=== PATIENT | male | born 1945 | race Caucasian/White ===

== ENCOUNTER 2016-08-19 22:33 | Inpatient (IN) | payer OTHER, MEDICARE ==
[~2016-08-19] VITALS: Ht 172.7 cm; Wt 97.0 kg
[~2016-08-19 22:33] MED LIST: ASPI325T PO; CAPT12.52 PO; CARV3.125 PO; LASI20TA PO; NITR12SP SL; POTA-243 PO; PRIL10CA PO; WARF7.5 PO; ZOCO80TA PO
[2016-08-19 22:56] VITALS: BP 193/94; PULSE 65; RESP 20; TEMP 97.9; O2SAT 97
[2016-08-19] MEDS ORDERED: SODIUM CHLORIDE 0.9% FLUSH 5 ML FLUSH IVF PRN (23:00)
--- NOTE | 2016-08-19 23:01 | PD ---
HPI Chief Complaint: Chest Pain Time Seen by Provider: 22:36 Travel History International Travel<30 days: No Contact w/Intl Traveler<30days: No Traveled to known affect area: No History of Present Illness HPI This 71-year-old male is complaining of chest pain. He says he was at home. He was walking his dogs around 7 when he had an onset of left lateral chest pain. He felt short of breath with the pain. He went home and the pain was fairly persistent. He rated it as a 6 or 7/10. He has a home oxygen tank and he uses some oxygen with some relief. He has a history of coronary artery disease. He has had bypass surgery and 5 stents. He says the last stent was about 20 years ago. In 2009 had a large pulmonary embolus week after surgery for prostate cancer. He is not on blood thinners now. He does not smoke. He does take aspirin daily and took one today PFSH Past Medical History Arthritis: Yes Asthma: No Cancer: Yes (PROSTATE) Cardiac Catheterization: Yes (ANGIOPLASTY X 5) Cardiovascular Problems: Yes High Cholesterol: Yes Chest Pain: Yes (MT X 3) Congestive Heart Failure: No COPD: No Cerebrovascular Accident: No Coronary Artery Disease: Yes Diabetes: Yes (PREDIABETIC) GERD: Yes Genitourinary: Yes (INCREASING PSA-PROSTATECTOMY 10/12/09) Headaches: No Hepatitis: No Hypertension: Yes Kidney Stones: No Musculoskeletal: Yes Neurologic: No Respiratory: No Migraines: No Myocardial Infarction: Yes (MT X 3) Renal Failure: No Seizures: No Sleep Apnea: No Ulcer: Yes (DUODENAL ULCER) Past Surgical History Abdominal Surgery: Yes (PROSTATECTOMY) Appendectomy: Yes Cardiac Surgery: Yes (CABG X 1 20 YRS AGO) Cholecystectomy: No Coronary Artery Bypass Graft: Yes Genitourinary Surgery: Yes (PROSTATECTOMY) Prostatectomy: Yes (10/22/2009 IN [facility]) Thoracic Surgery: Yes (CABG X 1) Tonsillectomy: Yes Social History Alcohol Use: Yes (1-2/DAY) Tobacco Use: No Substance Use: No Allergies-Medications (Allergen,Severity, Reaction): Coded Allergies: No Known Allergies (Verified , 10/28/09) Reported Meds & Prescriptions Reported Meds & Active Scripts Active Reported Coumadin (Warfarin Sodium) 7.5 Mg Tab 7.5 Mg PO DAILY Zocor (Simvastatin) 80 Mg Tab 80 Mg PO HS Nitrolingual Pumpspray (Nitroglycerin) 12 Gm [place] 3 Spr SL THREE SPRAYS PRN Prilosec (Omeprazole) 10 Mg Cap 20 Mg PO DAILYAC UNKNOWN DOSE K-Dur (Potassium Chloride) 10 Meq Tabcr 20 Mg PO BID UNKNOWN DOSE Lasix (Furosemide) 20 Mg Tab 80 Mg PO BID UNKNOWN DOSE Capoten (Captopril) 12.5 Mg Tab 25 Mg PO BID Coreg (Carvedilol) 3.125 Mg Tab 12.5 Mg PO BID UNKNOWN DOSE Aspirin 325 Mg Tab 325 Mg PO DAILY Review of Systems General / Constitutional: No: Fever Eyes: No: Diploplia HENT: No: Headaches, Vertigo Cardiovascular: Positive: Chest Pain or Discomfort, No: Palpitations Respiratory: Positive: Shortness of Breath Gastrointestinal: No: Vomiting, Diarrhea Genitourinary: No: Urgency Skin: Positive Rash Neurologic: No: Weakness, Dizziness Psychiatric: No: Anxiety Endocrine: No: Heat Intolerance Hematologic/Lymphatic: No: Easy Bruising Physical Exam Narrative GENERAL: Well-developed male SKIN: Warm and dry. There are a few erythematous spots on the left lower leg. They're not confluent or warm. HEAD: Atraumatic. Normocephalic. EYES: Pupils equal and round. No scleral icterus. No injection or drainage. ENT: No nasal bleeding or discharge. Mucous membranes pink and moist. NECK: Trachea midline. No JVD. CARDIOVASCULAR: Regular rate and rhythm. No murmur appreciated. No chest wall tenderness RESPIRATORY: No accessory muscle use. Clear to auscultation. Breath sounds equal bilaterally. GASTROINTESTINAL: Abdomen soft, non-tender, nondistended. Hepatic and splenic margins not palpable. MUSCULOSKELETAL: No obvious deformities. No clubbing. No cyanosis. No edema. NEUROLOGICAL: Awake and alert. No obvious cranial nerve deficits. Motor grossly within normal limits. Normal speech. PSYCHIATRIC: Appropriate mood and affect; insight and judgment normal. Data Data Last Documented VS Vital Signs Date Time Temp Pulse Resp B/P Pulse Ox O2 Delivery O2 Flow Rate FiO2 08/19/16 23:37 60 24 97 Nasal Cannula 2 08/19/16 23:37 147/70 08/19/16 22:56 97.9 Orders Electrocardiogram (08/19/16 22:54) Basic Metabolic Panel (Bmp) (08/19/16 22:54) B-Type Natriuretic Peptide (08/19/16 22:54) Complete Blood Count With Diff (08/19/16 22:54) Magnesium (Mg) (08/19/16 22:54) Prothrombin Time / Inr (Pt) (08/19/16 22:54) Act Partial Throm Time (Ptt) (08/19/16 22:54) Troponin I (08/19/16 22:54) Chest, Single Ap (08/19/16 22:54) Ecg Monitoring (08/19/16 22:54) Bilateral Bp Monitoring (08/19/16 22:54) Iv Access Insert/Monitor (08/19/16 22:54) Oximetry (08/19/16 22:54) Oxygen Administration (08/19/16 22:54) Sodium Chloride 0.9% Flush (Ns Flush) (08/19/16 23:00) Ct Pulmonary Angiogram (08/19/16 23:34) Labs Laboratory Tests Test 08/19/16 23:00 White Blood Count 8.4 TH/MM3 Red Blood Count 4.15 MIL/MM3 Hemoglobin 13.9 GM/DL Hematocrit 40.6 % Mean Corpuscular Volume 97.7 FL Mean Corpuscular Hemoglobin 33.4 PG Mean Corpuscular Hemoglobin 34.2 % Concent Red Cell Distribution Width 13.4 % Platelet Count 223 TH/MM3 Mean Platelet Volume 8.0 FL Neutrophils (%) (Auto) 60.0 % Lymphocytes (%) (Auto) 28.9 % Monocytes (%) (Auto) 7.4 % Eosinophils (%) (Auto) 3.0 % Basophils (%) (Auto) 0.7 % Neutrophils # (Auto) 5.0 TH/MM3 Lymphocytes # (Auto) 2.4 TH/MM3 Monocytes # (Auto) 0.6 TH/MM3 Eosinophils # (Auto) 0.3 TH/MM3 Basophils # (Auto) 0.1 TH/MM3 CBC Comment DIFF FINAL Differential Comment Prothrombin Time 10.7 SEC Prothromb Time International 1.0 RATIO Ratio Activated Partial 23.4 SEC Thromboplast Time Sodium Level 143 MEQ/L Potassium Level 4.1 MEQ/L Chloride Level 103 MEQ/L Carbon Dioxide Level 33.5 MEQ/L Anion Gap 7 MEQ/L Blood Urea Nitrogen 18 MG/DL Creatinine 1.00 MG/DL Estimat Glomerular Filtration 73 ML/MIN Rate Random Glucose 152 MG/DL Calcium Level 8.8 MG/DL Magnesium Level 2.2 MG/DL Troponin I 0.20 NG/ML B-Type Natriuretic Peptide 57 PG/ML MDM Medical Decision Making Medical Screen Exam Complete: Yes Emergency Medical Condition: Yes Medical Record Reviewed: Yes Differential Diagnosis Differential includes coronary artery disease, pulmonary embolus, atypical chest pain Narrative Course EKG shows normal sinus rhythm. Chest x-rays negative. His oxygen saturation on arrival was about 92%. Troponin has come back elevated at 0.2. I have spoken to Dr. Stewart. He recommends heparinization and repeat troponin 2 hours. If the troponin is going up the patient may be transferred to [place] for possible catheterization, if stable he will be evaluated here Diagnosis Primary Impression: Chest pain Qualified Code: R07.9 - Chest pain, unspecified type Additional Impression: Elevated troponin Sajan Hudson MD Aug 19, 2016 23:01
[2016-08-19 23:11] VITALS: BP 145/72; PULSE 62; RESP 20; O2SAT 97
[2016-08-19 23:13] LABS: BASOPHIL # 0.1 TH/MM3 (0-0.2); BASOPHIL % 0.7 % (0.0-2.0); EOSINOPHIL # 0.3 TH/MM3 (0-0.4); HEMATOCRIT 40.6 % (39.0-51.0); HEMO FLAGS DIFF FINAL; LYMPH % 28.9 % (9.0-44.0); LYMPHOCYTE # 2.4 TH/MM3 (1.0-4.8); MEAN CELL VOLUME 97.7 FL (80.0-100.0); MEAN CORPUSCULAR HEMOGLOBIN 33.4 PG (27.0-34.0); MEAN CORPUSCULAR HGB CONC 34.2 % (32.0-36.0); MONO % 7.4 % (0.0-8.0); PLATELET COUNT 223 TH/MM3 (150-450); RED BLOOD COUNT 4.15 MIL/MM3 (4.50-5.90); RED CELL DISTRIBUTION WIDTH 13.4 % (11.6-17.2); WHITE BLOOD COUNT 8.4 TH/MM3 (4.0-11.0)
[2016-08-19 23:15] VITALS: BP_SYST 132; BP_SYST 145; BP_DIAS 68; BP_DIAS 72; PULSE 62; RESP 20; O2SAT 97
[2016-08-19 23:25] LABS: POTASSIUM 4.1 MEQ/L (3.5-5.1)
[2016-08-19 23:28] LABS: BICARBONATE 33.5 MEQ/L (21.0-32.0); MAGNESIUM 2.2 MG/DL (1.5-2.5)
[2016-08-19 23:31] LABS: APTT (PATIENT) 23.4 SEC (24.3-30.1); PROTHROMBIN TIME - PATIENT 10.7 SEC (9.8-11.6)
[2016-08-19 23:37] VITALS: BP 147/70; PULSE 72; RESP 20; O2SAT 97
--- NOTE | 2016-08-19 23:38 | RADHPO ---
EXAM DATE/TIME: 08/19/2016 23:22 [facility] COMPARISON: No previous studies available for comparison. INDICATIONS : Chest pain MEDICAL HISTORY : Myocardial infarction. Diabetes mellitus type II. SURGICAL HISTORY : CABG. Prostatectomy. Angioplasty ENCOUNTER: Initial ACUITY: 1 day PAIN SCORE: 6/10 LOCATION: Bilateral chest FINDINGS: Lungs are focally clear. No pleural effusion suspected. Cardiomediastinal contours are satisfactory. There is been previous sternotomy. CONCLUSION: Acute disease. Juan F Mcdaniel MD on August 19, 2016 at 23:36 Board Certified Radiologist. This report was verified electronically.
[2016-08-20] VITALS (19 sets, daily range): BP systolic 102–150; BP diastolic 52–85; PULSE 55–66; RESP 16–20; TEMP 98–98.5; O2SAT 95–98
[2016-08-20] MEDS ORDERED: NITR400A5 SL (00:14)
[2016-08-20] MEDS ORDERED: ISOS20TA PO (00:14)
[2016-08-20] MEDS ORDERED: ROSU40 PO (00:14)
[2016-08-20] MEDS ORDERED: GABA300C5 PO (00:14)
[2016-08-20] MEDS ORDERED: ASPI325T PO (00:14)
[2016-08-20] MEDS ORDERED: FOLI800T PO (00:14)
[2016-08-20] MEDS ORDERED: POTA1TAB4 PO (00:14)
[2016-08-20] MEDS ORDERED: PRIL20CA9 PO (00:14)
[2016-08-20] MEDS ORDERED: CARV3.125 PO (00:14)
[2016-08-20] MEDS ORDERED: FURO80TA PO (00:14)
[2016-08-20] MEDS ORDERED: CAPT12.52 PO (00:14)
[2016-08-20] MEDS ORDERED: IOHEXOL 350 MG/ML 10 ML VIAL (for RAD DIAG) IV ONE (00:25)
--- NOTE | 2016-08-20 00:33 | RADHPO ---
EXAM DATE/TIME: 08/20/2016 00:01 [facility] COMPARISON: No previous studies available for comparison. INDICATIONS : Left sided chest pain with shortness of breath. IV CONTRAST: 75 cc Omnipaque 350 (iohexol) IV RADIATION DOSE: 21.91 CTDIvol (mGy) MEDICAL HISTORY : Hypertension. Myocardial infarction. Coronary artery disease. SURGICAL HISTORY : CABG Angioplasty. ENCOUNTER: Initial ACUITY: 1 day PAIN SCALE: 7/10 LOCATION: Left chest TECHNIQUE: Volumetric scanning of the chest was performed using a pulmonary embolism protocol MIP images were re constructed. Using automated exposure control and adjustment of the mA and/or kV according to patien t size, radiation dose was kept as low as reasonably achievable to obtain optimal diagnostic quality images. FINDINGS: PULMONARY ARTERIES: No filling defects are seen in the pulmonary arteries through the segmental level. LUNGS: 6 mm nodule in the posterior right costophrenic sulcus. Minimal basilar atelectasis or lung scarring. PLEURAE: There is no pleural thickening or pleural effusion. MEDIASTINUM: There is good visualization of the great vessels of the middle mediastinum. No evidence of mediastin al or hilar adenopathy/mass. MUSCULOSKELETAL: Within normal limits for patient age. MISCELLANEOUS: The visualized upper abdominal organs demonstrate no acute abnormality. CONCLUSION: No evidence of pulmonary embolism. 6 mm right lung nodule will need to be followed Juan F Mcdaniel MD on August 20, 2016 at 0:27 Board Certified Radiologist. This report was verified electronically.
--- NOTE | 2016-08-20 00:39 | PD ---
Physical Exam Date Seen by Provider: Aug 20, 2016 Time Seen by Provider: 00:37 Narrative Accepted in transfer of care from Dr. Walsh Data Data Last Documented VS Vital Signs Date Time Temp Pulse Resp B/P Pulse Ox O2 Delivery O2 Flow Rate FiO2 08/19/16 23:37 60 24 97 Nasal Cannula 2 08/19/16 23:37 147/70 08/19/16 22:56 97.9 Orders Electrocardiogram (08/19/16 22:54) Basic Metabolic Panel (Bmp) (08/19/16 22:54) B-Type Natriuretic Peptide (08/19/16 22:54) Complete Blood Count With Diff (08/19/16 22:54) Magnesium (Mg) (08/19/16 22:54) Prothrombin Time / Inr (Pt) (08/19/16 22:54) Act Partial Throm Time (Ptt) (08/19/16 22:54) Troponin I (08/19/16 22:54) Chest, Single Ap (08/19/16 22:54) Ecg Monitoring (08/19/16 22:54) Bilateral Bp Monitoring (08/19/16 22:54) Iv Access Insert/Monitor (08/19/16 22:54) Oximetry (08/19/16 22:54) Oxygen Administration (08/19/16 22:54) Sodium Chloride 0.9% Flush (Ns Flush) (08/19/16 23:00) Ct Pulmonary Angiogram (08/19/16 23:34) Iohexol 350 Inj (Omnipaque 350 Inj) (08/20/16 00:25) Troponin I (08/20/16 02:00) Admit To Inpatient (08/20/16 ) Vital Signs (Adult) Q4H (08/20/16 00:42) Activity Oob With Assistance (08/20/16 00:42) ^ Shrink Pit Operator / Telemetry .CONTINUOUS (08/20/16 00:42) Intake + Output ANJEL.QSHIFT (08/20/16 00:42) Diet Heart Healthy (08/20/16 Breakfast) Sodium Chlor 0.9% 1000 Ml Inj (Ns 1000 M (08/20/16 00:42) Sodium Chloride 0.9% Flush (Ns Flush) (08/20/16 00:45) Sodium Chloride 0.9% Flush (Ns Flush) (08/20/16 09:00) Ondansetron Inj (Zofran Inj) (08/20/16 00:45) Bisacodyl Supp (Dulcolax Supp) (08/20/16 00:45) Heparin Infusion ANJEL.Q1H (08/20/16 00:43) Comprehensive Metabolic Panel (08/21/16 06:00) Complete Blood Count With Diff (08/21/16 06:00) Heparin Inj (Heparin Inj) (08/20/16 00:45) Troponin I (08/20/16 09:00) Heparin-D5w Inj (Heparin-D5w Inj) (08/20/16 00:45) Troponin I (08/20/16 15:00) Cbc No Diff, Includes Plts (08/23/16 06:00) Acetaminophen (Tylenol) (08/20/16 00:45) Act Partial Throm Time (Ptt) (08/20/16 07:43) Acetamin-Hydrocod 325-5 Mg (Jones 5-325 (08/20/16 00:45) Occult Blood (Hemoccult) Stool (08/20/16 00:43) Morphine Inj (Morphine Inj) (08/20/16 00:45) Inpatient Certification (08/20/16 ) Aspirin (Aspirin) (08/20/16 09:00) Carvedilol (Coreg) (08/20/16 09:00) Gabapentin (Neurontin) (08/20/16 09:00) Atorvastatin (Lipitor) (08/20/16 09:00) Labs Laboratory Tests Test 08/19/16 08/20/16 23:00 02:00 White Blood Count 8.4 TH/MM3 Red Blood Count 4.15 MIL/MM3 Hemoglobin 13.9 GM/DL Hematocrit 40.6 % Mean Corpuscular Volume 97.7 FL Mean Corpuscular Hemoglobin 33.4 PG Mean Corpuscular Hemoglobin 34.2 % Concent Red Cell Distribution Width 13.4 % Platelet Count 223 TH/MM3 Mean Platelet Volume 8.0 FL Neutrophils (%) (Auto) 60.0 % Lymphocytes (%) (Auto) 28.9 % Monocytes (%) (Auto) 7.4 % Eosinophils (%) (Auto) 3.0 % Basophils (%) (Auto) 0.7 % Neutrophils # (Auto) 5.0 TH/MM3 Lymphocytes # (Auto) 2.4 TH/MM3 Monocytes # (Auto) 0.6 TH/MM3 Eosinophils # (Auto) 0.3 TH/MM3 Basophils # (Auto) 0.1 TH/MM3 CBC Comment DIFF FINAL Differential Comment Prothrombin Time 10.7 SEC Prothromb Time International 1.0 RATIO Ratio Activated Partial 23.4 SEC Thromboplast Time Sodium Level 143 MEQ/L Potassium Level 4.1 MEQ/L Chloride Level 103 MEQ/L Carbon Dioxide Level 33.5 MEQ/L Anion Gap 7 MEQ/L Blood Urea Nitrogen 18 MG/DL Creatinine 1.00 MG/DL Estimat Glomerular Filtration 73 ML/MIN Rate Random Glucose 152 MG/DL Calcium Level 8.8 MG/DL Magnesium Level 2.2 MG/DL Troponin I 0.20 NG/ML 0.30 NG/ML B-Type Natriuretic Peptide 57 PG/ML [facility] Medical Record Reviewed: Yes Supervised Visit with KAYLEE: No Interpretation(s) CTA pulmonary: CONCLUSION: No evidence of pulmonary embolism. 6 mm right lung nodule will need to be followed Juan F Mcdaniel MD on August 20, 2016 at 0:27 Board Certified Radiologist. This report was verified electronically. Last Impressions Chest X-Ray 08/19/16 [id number] Signed Impressions: Service Date/Time: Friday, August 19, 2016 23:22 - CONCLUSION: Acute disease. Juan F Mcdaniel MD troponin I: (#2) 0.3, elevated Differential Diagnosis please refer to Dr. Walsh's dictation Narrative Course Accepted in transfer of care from Dr. Walsh At 12:[address] pulmonary angiogram is negative for PE; patient is to have repeat troponin at 3 hours from initial troponin at time of arrival; patient case had been discussed with Dr. Valdivia personal injury specialist for cardiology by managing physician Dr. Manley who recommended patient to be placed on Lovenox and have a 3 hour troponin obtained from initial troponin which was abnormal at 0.2. Patient's troponin is increasing patient will need to be transferred to [facility] if troponin is remaining the same or decreasing plan will be to admit patient to [facility] Physician Communication Physician Communication discussed with Dr Barone will admit with heparinization but wants to obtain 2nd troponin result before admitting to the [facility] service Diagnosis Primary Impression: Chest pain Qualified Code: R07.9 - Chest pain, unspecified type Additional Impression: Elevated troponin Blanca Gutierrez MD Aug 20, 2016 00:39
[2016-08-20] MEDS ORDERED: SODIUM CHLOR 0.9% 1000 ML INJ 1,000 ML IV SCH (00:42)
[2016-08-20] MEDS ORDERED: HEPARIN-D5W INJ 250 ML IV SCH (00:45)
[2016-08-20] MEDS ORDERED: HEPARIN SODIUM - IV 10,000 UNITS/10 ML VIAL IV ONE (00:45)
[2016-08-20] MEDS ORDERED: ACETAMINOPHEN/HYDROcodone 325 MG/5 MG TAB PO PRN (00:45)
[2016-08-20] MEDS ORDERED: MORPHINE SULFATE 4 MG/ML INJ IV PRN (00:45)
[2016-08-20] MEDS ORDERED: ONDANSETRON HCL 4 MG/2 ML VIAL IVP PRN (00:45)
[2016-08-20] MEDS ORDERED: BISACODYL 10 MG SUPP PR PRN (00:45)
[2016-08-20] MEDS ORDERED: SODIUM CHLORIDE 0.9% FLUSH 5 ML FLUSH FLUSH PRN (00:45)
[2016-08-20] MEDS ORDERED: ACETAMINOPHEN 325 MG TAB PO PRN (00:45)
[2016-08-20] MEDS ORDERED: SODIUM CHLORIDE 0.9% FLUSH 5 ML FLUSH IVF PRN (03:00)
[2016-08-20] MEDS: ATORVASTATIN 80 MG TAB PO SCH (08:47)
[2016-08-20] MEDS: SODIUM CHLORIDE 0.9% FLUSH 5 ML FLUSH IVF SCH ×2 (08:47→21:00)
[2016-08-20] MEDS: GABAPENTIN 300 MG CAP PO SCH ×3 (08:47→18:02)
[2016-08-20] MEDS ORDERED: ASPIRIN EC 81 MG TABEC PO SCH (09:00)
[2016-08-20] MEDS ORDERED: CARVEDILOL 3.125 MG TAB PO SCH (09:00)
[2016-08-20] MEDS ORDERED: ASPIRIN 325 MG TAB PO SCH (09:00)
[2016-08-20] MEDS ORDERED: SODIUM CHLORIDE 0.9% FLUSH 5 ML FLUSH FLUSH SCH (09:00)
[2016-08-20 11:12] LABS: APTT (PATIENT) 25.9 SEC (24.3-30.1)
--- NOTE | 2016-08-20 12:54 | HHI.HP ---
[facility] Service [facility] Hospitalists Primary Care Physician Javed Cummings MD Admission Diagnosis chest pain; nstemi Diagnoses: Chief Complaint: chest pain Travel History International Travel<30 Days: No Contact w/Intl Traveler <30 Da: [place] Country Traveled to: [place] Traveled to Known Affected Are: No History of Present Illness 71-year-old male with PMH of CAD with CABG, HTN, DM2, duodenal ulcer, prostate CA came to the ED with complaint of chest pain associated with sob. He was walking his dogs around 7 when he had an onset of left lateral chest pain 6/10 in intensity radiating to his left side. He felt short of breath with the pain. He went home and the pain was fairly persistent. He rated it as a 6 or 7 /10. He has a home oxygen tank and he uses some oxygen with some relief. He has a history of coronary artery disease. He has had bypass surgery and 5 stents. He says the last stent was about 20 years ago. In 2009 had a large pulmonary embolus week after surgery for prostate cancer. He is not on blood thinners now other than ASA. He does not smoke. He does take aspirin daily and took one today, He took NGL spray prior to admission 3 puffs. Says he feels some pressure in his chest now, and pain is 2/10. No associated diaphoresis, nausea, palpitations. No other symptoms. He initially presented to [facility], however trops trending up , Dr Terry wayne, recommends transferring the patient to [facility] for cath Was seen by Dr Meneses, plan for cardiac cath today in the afternoon. Review of Systems Other Negative except ROS in HPI Past Family Social History Past Medical History CAD with CABG, HTN, DM2, duodenal ulcer, prostate CA Past Surgical History CABG , 5 angioplasties Prostatectomy 2009 Reported Medications Last Impressions CT Angiography 08/19/16 [id number] Signed Impressions: Service Date/Time: Saturday, August 20, 2016 00:01 - CONCLUSION: No evidence of pulmonary embolism. 6 mm right lung nodule will need to be followed Juan F Mcdaniel MD Chest X-Ray 08/19/16 [id number] Signed Impressions: Service Date/Time: Friday, August 19, 2016 23:22 - CONCLUSION: Acute disease. Juan F Mcdaniel MD Allergies: Coded Allergies: No Known Allergies (Verified , 10/28/09) Family History Father had SC at the age of 42 Grandfather and uncle with cardiac problems Social History Quit smoking 30 years ago 3 drinks twice a week (bourbon, whiskey) when at golf Physical Exam Vital Signs Vital Signs Date Time Temp Pulse Resp B/P Pulse Ox O2 Delivery O2 Flow Rate FiO2 08/20/16 12:01 58 08/20/16 11:30 98.0 59 16 123/66 97 08/20/16 11:00 57 08/20/16 10:34 95 Nasal Cannula 2.00 08/20/16 10:00 58 08/20/16 09:00 58 08/20/16 08:15 98.0 60 16 136/73 98 08/20/16 08:15 98.0 60 16 136/73 98 08/20/16 08:00 61 08/20/16 07:00 58 08/20/16 06:10 98.0 58 20 136/79 98 08/20/16 05:00 66 18 126/62 97 Room Air 08/20/16 02:44 97 Nasal Cannula 2.00 08/20/16 02:44 66 20 124/60 97 08/20/16 01:44 58 20 102/52 97 08/20/16 00:44 56 20 118/74 97 08/19/16 23:37 60 24 97 Nasal Cannula 2 08/19/16 23:37 72 20 147/70 97 Nasal Cannula 2 08/19/16 23:15 62 20 145/72 97 132/68 08/19/16 23:11 62 20 145/72 97 Nasal Cannula 2 08/19/16 23:10 98 Nasal Cannula 2 08/19/16 22:56 97.9 65 20 193/94 97 Physical Exam GENERAL: This is a pleasant 71 yo male, obese, well-nourished, well-developed patient, in no apparent distress. SKIN: No ecchymoses or lesions. Cool and dry. HEAD: Atraumatic. Normocephalic. No temporal or scalp tenderness. EYES: Pupils equal round and reactive. Extraocular motions intact. No scleral icterus. No injection or drainage. ENT: Nose without bleeding, purulent drainage or septal hematoma. Throat without erythema, tonsillar hypertrophy or exudate. Uvula midline. Airway patent. NECK: Trachea midline. No JVD or lymphadenopathy. Supple, nontender, no meningeal signs. CARDIOVASCULAR: Regular rate and rhythm without murmurs, gallops, or rubs. RESPIRATORY: Clear to auscultation. Breath sounds equal bilaterally. No wheezes , rales, or rhonchi. GASTROINTESTINAL: Abdomen soft, obese, non-tender, nondistended. No hepato- splenomegaly, or palpable masses. No guarding. MUSCULOSKELETAL: Extremities without clubbing, cyanosis, or edema. No joint tenderness, effusion, or edema noted. No calf tenderness. Negative Homans sign bilaterally. NEUROLOGICAL: Awake and alert. Cranial nerves II through XII intact. Motor and sensory grossly within normal limits. Five out of 5 muscle strength in all muscle groups. Normal speech. Laboratory Laboratory Tests Test 08/19/16 08/20/16 08/20/16 08/20/16 23:00 02:00 10:40 11:05 White Blood Count 8.4 Red Blood Count 4.15 Hemoglobin 13.9 Hematocrit 40.6 Mean Corpuscular Volume 97.7 Mean Corpuscular Hemoglobin 33.4 Mean Corpuscular Hemoglobin 34.2 Concent Red Cell Distribution Width 13.4 Platelet Count 223 Mean Platelet Volume 8.0 Neutrophils (%) (Auto) 60.0 Lymphocytes (%) (Auto) 28.9 Monocytes (%) (Auto) 7.4 Eosinophils (%) (Auto) 3.0 Basophils (%) (Auto) 0.7 Neutrophils # (Auto) 5.0 Lymphocytes # (Auto) 2.4 Monocytes # (Auto) 0.6 Eosinophils # (Auto) 0.3 Basophils # (Auto) 0.1 CBC Comment DIFF FINAL Differential Comment Prothrombin Time 10.7 Prothromb Time International 1.0 Ratio Activated Partial 23.4 25.9 26.0 Thromboplast Time Sodium Level 143 Potassium Level 4.1 Chloride Level 103 Carbon Dioxide Level 33.5 Anion Gap 7 Blood Urea Nitrogen 18 Creatinine 1.00 Estimat Glomerular Filtration 73 Rate Random Glucose 152 Calcium Level 8.8 Magnesium Level 2.2 Troponin I 0.20 0.30 0.45 B-Type Natriuretic Peptide 57 Result Diagram: 08/19/160 08/19/[address] Angiography 08/19/16 [id number] Signed Impressions: Service Date/Time: Saturday, August 20, 2016 00:01 - CONCLUSION: No evidence of pulmonary embolism. 6 mm right lung nodule will need to be followed Juan F Mcdaniel MD Chest X-Ray 08/19/16 [id number] Signed Impressions: Service Date/Time: Friday, August 19, 2016 23:22 - CONCLUSION: Acute disease. Juan F Mcdaniel MD Assessment and Plan Assessment and Plan 71-year-old male with PMH of CAD with CABG, HTN, DM2, duodenal ulcer, prostate CA came to the ED with complaint of chest pain with exertion associated with sob NSTEMI H/o CAD with 5 angioplasties and CABG. Restart home meds. Trops elevated 0.2->0.3 trending up. EKG shows normal sinus rhythm. Chest x-rays negative. His oxygen saturation on arrival was 92%. CTA reviewed No evidence of pulmonary embolism. 6 mm right lung nodule will need to be followed as OP. Patient aware, repeat CT as OP. Started heparin drip Nitro for pain Monitor on telemetry HTN, DM2, duodenal ulcer, prostate CA. Stable. Hold home meds for DM, resume at DC. Start insulin SS , accuchecks, monitor BS. Monitor VS and restart BP meds. DVT ppx SCD/TEDs, is on heparin drip Code Status full Discussed Condition With Patient, nurse Physician Certification 2 Midnight Certification Type: Admission for Inpatient Services Order for Inpatient Services The services are ordered in accordance with Medicare regulations or non- Medicare payer requirements, as applicable. In the case of services not specified as inpatient-only, they are appropriately provided as inpatient services in accordance with the 2-midnight benchmark. Estimated LOS (days): 3 days is the estimated time the patient will need to remain in the hospital, assuming treatment plan goals are met and no additional complications. Post-Hospital Plan: Home Shannon Aguilar MD Aug 20, 2016 12:53
[2016-08-20] MEDS ORDERED: IOHEXOL 350 MG/ML 50 ML BTL (for Cath Lab) OTHER ONE (14:25)
[2016-08-20] MEDS ORDERED: IOHEXOL 350 MG/ML 100 ML BTL (for Cath Lab) OTHER ONE (14:25)
[2016-08-20] MEDS ORDERED: MORPHINE SULFATE 4 MG/ML INJ IV PUSH PRN (15:00)
[2016-08-20] MEDS ORDERED: PRASUGREL 10 MG TAB ONE (16:27)
[2016-08-20] MEDS ORDERED: NITROGLYCERIN-DEXTROSE INJ 250 ML ONE (16:27)
[2016-08-20] MEDS ORDERED: NITROGLYCERIN 400 MCG/SPRAY 4.9 GM BOTTLE SL ONE (16:28)
[2016-08-20] MEDS ORDERED: MORPHINE SULFATE 8 MG/ML INJ ONE (16:34)
[2016-08-20] MEDS ORDERED: MIDAZOLAM HCL 2 MG/2 ML VIAL ONE (16:35)
[2016-08-20] MEDS ORDERED: HEPARIN SODIUM - IV 10,000 UNITS/10 ML VIAL ONE ×2 (16:36→19:55)
[2016-08-20] MEDS ORDERED: ceFAZolin INJ 1,000 MG VIAL ONE (16:51)
[2016-08-20] MEDS ORDERED: TICAGRELOR 90 MG TAB PO ONE (16:51)
[2016-08-20] MEDS: LISINOPRIL 20 MG TAB PO SCH (19:00)
--- NOTE | 2016-08-20 19:28 | EKG ---
Date Performed: 08/19/2016 Time Performed: 22:34:26 PTAGE: 71 years EKG: Sinus rhythm Normal ECG PREVIOUS TRACING : 10/30/2009 10.52 DOCTOR: Nestor Huynh Interpretating Date/Time 08/20/2016 19:23:57
[2016-08-20] MEDS ORDERED: HEPARIN-NS/PF INJ 500 ML ONE ×3 (19:48→22:07)
[2016-08-20] MEDS ORDERED: MIDAZOLAM HCL 5 MG/5 ML VIAL ONE (19:49)
[2016-08-20] MEDS ORDERED: VERAPAMIL HCL 5 MG/2 ML VIAL ONE (19:55)
[2016-08-20] MEDS ORDERED: FLUMAZENIL 0.5 MG/5 ML VIAL ONE (20:02)
[2016-08-20] MEDS ORDERED: NALOXONE HCL 0.4 MG/ML AMP ONE (20:06)
[2016-08-20] MEDS ORDERED: BIVALIRUDIN 250 MG VIAL ONE ×2 (20:25→21:04)
[2016-08-20] MEDS ORDERED: PHENYLEPH/NS 1000 MCG/10 ML SYR ONE (20:39)
[2016-08-20] MEDS: CARVEDILOL 3.125 MG TAB PO SCH (21:00)
[2016-08-20] MEDS ORDERED: LIDOCAINE HCL 1% PF 30 ML VIAL ONE (22:08)
[2016-08-20 23:47] LABS: HEMATOCRIT 41.3 % (39.0-51.0); REVIEW FLAG FINAL
[2016-08-21] VITALS (20 sets, daily range): BP systolic 84–152; BP diastolic 51–80; PULSE 80–106; RESP 12–24; TEMP 97.7–98.8; O2SAT 92–97
[2016-08-21] MEDS ORDERED: SODIUM CHLOR 0.9% 1000 ML INJ 500 ML IV ONE (05:15)
[2016-08-21 06:17] LABS: AUTOMATED NEUTROPHIL # 9.8 TH/MM3 (1.8-7.7); BASOPHIL % 0.4 % (0.0-2.0); EOSINOPHIL % 0.1 % (0.0-4.0); HEMATOCRIT 40.9 % (39.0-51.0); HEMO FLAGS DIFF FINAL; LYMPH % 8.2 % (9.0-44.0); MEAN CELL VOLUME 100.2 FL (80.0-100.0); NEUT % 84.3 % (16.0-70.0); PLATELET COUNT 228 TH/MM3 (150-450); RED BLOOD COUNT 4.08 MIL/MM3 (4.50-5.90); RED CELL DISTRIBUTION WIDTH 14.1 % (11.6-17.2); WHITE BLOOD COUNT 11.6 TH/MM3 (4.0-11.0)
[2016-08-21 06:51] LABS: ALKALINE PHOSPHATASE 60 U/L (45-117); ALT (GPT) 63 U/L (12-78); ANION GAP 10 MEQ/L (5-15); AST (GOT) 250 U/L (15-37); BICARBONATE 26.9 MEQ/L (21.0-32.0); BLOOD UREA NITROGEN 10 MG/DL (7-18); CHLORIDE 101 MEQ/L (98-107); GLOMERULAR FILTRATION RATE 104 ML/MIN (>89); POTASSIUM 4.2 MEQ/L (3.5-5.1); SODIUM (NA) 138 MEQ/L (136-145); TOTAL BILIRUBIN ADULT 0.4 MG/DL (0.2-1.0)
--- NOTE | 2016-08-21 06:57 | MB ---
cc: CHIDI BAGLEY DATE OF CONSULTATION 08/20/2016 DATE OF 1945 REASON FOR CONSULTATION Chest pain, [id number] ME. HISTORY OF PRESENT ILLNESS 71-year-old male with past medical history significant for CAD status post bypass surgery and stents in the past who presented from home complaining of left-sided chest pressure relieved by oxygen. He has been requiring more than his usual dose of nitroglycerin daily. In the emergency department, he was found to have elevated troponins. EKG is showing sinus rhythm with no acute ST changes for which she was consulted to cardiology and admitted to the hospital for further management and evaluation. Currently he remains stable. He states that his chest pressure is back to baseline. He has been started on a heparin drip as well as high-dose Lipitor and Coreg. REVIEW OF SYSTEMS Negative except for what is mentioned in the HPI. PAST MEDICAL HISTORY 1. Hypertension 2. Hyperlipidemia 3. CAD status post bypass and stents in the past. 4. Morbid obesity PAST SURGICAL HISTORY CABG and stents in the past. ALLERGIES NO KNOWN DRUG ALLERGIES. SOCIAL HISTORY He does not smoke. He does not use illicit drugs. He does not drink alcohol. PHYSICAL EXAM VITAL SIGNS: Temperature 98, respiratory rate 16, heart rate of 58, blood pressure 123/66, O2 sat 95% on room air. GENERAL: He is awake, alert and oriented x3 in no acute distress. NECK: No JVD. HEART: Regular rate and rhythm. No murmurs, rubs or rubs or gallops. LUNGS: Clear to auscultation bilaterally. No wheezes, rales or crackles. ABDOMEN: Obese. Positive bowel sounds, soft, nontender, nondistended. EXTREMITIES: No cyanosis or edema. Pulses throughout. DATA CBC hemoglobin 13, hematocrit of 40, platelets of 223, INR one. Chemistries sodium 143, potassium 4.1, BUN 18, creatinine of 1, troponin 0.2, 0.3 and 0.45. BNP 57. CTA no evidence of PE. Chest x-ray, no acute cardiopulmonary process. EKG as mentioned, normal sinus rhythm. ASSESSMENT/PLAN 71-year-old male with known coronary artery disease presenting with non-ST- elevation ME. Troponins trending up. He is currently chest pain-free and hemodynamically stable. He has an apparent complex history of CAD in the past. He states that his pain is worsened from his baseline pain despite medications. At this point, I would recommend to do a left heart catheterization to further re-stratify the progression of her coronary artery disease. The risks and benefits of left heart cath/intervention including but not limited to bleeding, acute kidney injury, stroke, emergent bypass surgery and have been explained to the patient who is willing to proceed. In the meantime, we will continue aggressive medical management for CAD, as well as a heparin drip, keep n.p.o. Thank you for the opportunity to take part in the care of this patient. Further therapy to be determined. MD JOSEFINA Beauchamp/NOMAN /2:37 PM /6:43 AM MTDCristina
[2016-08-21] MEDS: ASPIRIN EC 81 MG TABEC PO SCH (08:16)
[2016-08-21] MEDS: ATORVASTATIN 80 MG TAB PO SCH (08:16)
[2016-08-21] MEDS: GABAPENTIN 300 MG CAP PO SCH ×3 (08:16→18:39)
[2016-08-21] MEDS: SODIUM CHLORIDE 0.9% FLUSH 5 ML FLUSH IVF SCH ×2 (08:19→21:41)
[2016-08-21] MEDS: CARVEDILOL 3.125 MG TAB PO SCH ×2 (08:19→21:00)
[2016-08-21] MEDS: LISINOPRIL 20 MG TAB PO SCH (08:19)
--- NOTE | 2016-08-21 08:31 | MA ---
cc: YUDICHIDI DATE: 08/20/2016 DATE OF : 1945 PROCEDURE PERFORMED 1. Left heart catheterization. 2. Selective right and left coronary angiography. 3. Selective right common femoral artery angiography. 4. Left ventricle hemodynamics. 5. Successful PCI/RIMA to LAD and left circumflex artery. INDICATION Unstable angina, elevated troponins. PROCEDURE DESCRIPTION Consent signed. The patient was brought into the cardiac laboratory inspector in a fasting state. The right groin was prepped and draped in a sterile fashion. Using 1% lidocaine for local anesthesia and a micropuncture kit a long 6-Nigerian sheath was inserted into the right common femoral artery. Selective right common femoral artery angiography was performed to confirm position of the sheath. Selective right and left coronary angiography was then performed with a JR4 and a JL4 diagnostic catheters. We found a diffusely diseased right coronary artery which was 100% occluded distally with collaterals coming from the left system as well as from the right and then in the left-sided system we found significant concentric lesions in the proximal circumflex and in the mid LAD which we decided to percutaneously intervene. The left main was engaged with an EBU 3.5 guide. IV heparin was given for anticoagulation. The LAD was wired with a Runthrough wire which was anchored distally. The lesions were predilated with a 2.5 x 12 balloon followed by insertion and deployment of a 2.75 x 12 drug-eluting stent and a 3.0 x 12 drug-eluting stent. The stents were post dilated with a noncompliant 3.25 x 8 balloon which was inflated to high atmospheres. Final angiographic views revealed good stent position and expansion with EVIE-III flow. After stenting the LAD we proceeded to fix the circumflex artery. For this we wired the lesion with a Runthrough wire and then direct stented the lesion with a 3.0 x 8 drug-eluting stent. Final angiographic views revealed good stent apposition and expansion with EVIE-III flow. The patient tolerated the procedure well without complications. Estimated blood loss less than 70 cc. The right groin access site was closed with a Perclose device. The patient was loaded with Brilinta after the procedure. RESULTS LEFT VENTRICLE The LVEDP was 15. CORONARY ANGIOGRAPHY 1. RCA- 100% occluded distally with ceogu-dm-nunms collaterals that supply the PDA. The RCA is a dominant vessel. 2. The left main is patent without obstructive coronary artery disease. 3. The LAD is calcified, has minimal irregularities throughout. There are two mid concentric lesions of 90% and has a prominent first septal vessel. 4. The left circumflex artery has a proximal concentric 80% lesion. The first OM is patent. The second OM is patent. The AV groove part of the circumflex is giving collaterals to the right coronary artery PDA. CONCLUSIONS 1. Severe two-vessel coronary artery disease, LAD and left circumflex. 2. Successful PCI/RIMA to left anterior descending. 3. Successful PCI/RIMA to the left circumflex artery. RECOMMENDATIONS Continue dual-antiplatelet agent with aspirin and Brilinta as well as aggressive medical management of CAD that should include beta parag, PATRIZIA inhibitor, statin and long-acting nitrates. The patient should follow-up with his primary station mechanic, Dr. Anyi Dozier, when discharged from the hospital. MD JOSEFINA Beauchamp/COLT /5:15 PM /8:15 AM CHELSEY
--- NOTE | 2016-08-21 08:34 | HHI.PR ---
Subjective Remarks Feels much better. No chest pain overnight. No n/v/d/c. Satting well on 2L NC. Objective Vitals Vital Signs Date Time Temp Pulse Resp B/P Pulse Ox O2 Delivery O2 Flow Rate FiO2 08/21/16 08:17 97 21 08/21/16 03:00 89 08/21/16 03:00 98.0 99 12 143/74 97 124/77 08/21/16 00:00 83 08/21/16 00:00 97.7 80 16 144/80 97 08/20/16 18:00 65 08/20/16 17:18 98.5 55 18 150/85 95 08/20/16 17:00 55 08/20/16 14:00 59 08/20/16 13:00 61 08/20/16 12:01 58 08/20/16 11:30 98.0 59 16 123/66 97 08/20/16 11:00 57 08/20/16 10:34 95 Nasal Cannula 2.00 08/20/16 10:00 58 08/20/16 09:00 58 I/O 08/20/16 08/20/16 08/20/16 08/21/16 08/21/16 08/21/16 07:00 15:00 23:00 07:00 15:00 23:00 Intake Total 1350 ml 980 ml Output Total 400 ml 1200 ml 700 ml Balance -400 ml 150 ml 280 ml Intake Oral 600 ml 480 ml IV Total 750 ml 500 ml Output Urine Total 400 ml 1200 ml 700 ml # Voids 4 # Bowel Movements 1 0 Result Diagram: 08/21/16 0509 08/21/16 [address] Angiography 08/19/16 3114 Signed Impressions: Service Date/Time: Saturday, August 20, 2016 00:01 - CONCLUSION: No evidence of pulmonary embolism. 6 mm right lung nodule will need to be followed Juan F Mcdaniel MD Chest X-Ray 08/19/16 5392 Signed Impressions: Service Date/Time: Friday, August 19, 2016 23:22 - CONCLUSION: Acute disease. Juan F Mcdaniel MD Objective Remarks GENERAL: This is a pleasant 71 yo male, obese, well-nourished, well-developed patient, in no apparent distress. SKIN: No ecchymoses or lesions. Cool and dry. HEAD: Atraumatic. Normocephalic. No temporal or scalp tenderness. EYES: Pupils equal round and reactive. Extraocular motions intact. No scleral icterus. No injection or drainage. ENT: Nose without bleeding, purulent drainage or septal hematoma. Throat without erythema, tonsillar hypertrophy or exudate. Uvula midline. Airway patent. NECK: Trachea midline. No JVD or lymphadenopathy. Supple, nontender, no meningeal signs. CARDIOVASCULAR: Regular rate and rhythm without murmurs, gallops, or rubs. RESPIRATORY: Clear to auscultation. Breath sounds equal bilaterally. No wheezes , rales, or rhonchi. GASTROINTESTINAL: Abdomen soft, obese, non-tender, nondistended. No hepato- splenomegaly, or palpable masses. No guarding. MUSCULOSKELETAL: Extremities without clubbing, cyanosis, or edema. No joint tenderness, effusion, or edema noted. No calf tenderness. Negative Homans sign bilaterally. NEUROLOGICAL: Awake and alert. Cranial nerves II through XII intact. Motor and sensory grossly within normal limits. Five out of 5 muscle strength in all muscle groups. Normal speech. A/P Assessment and Plan 71-year-old male with PMH of CAD with CABG, HTN, DM2, duodenal ulcer, prostate CA came to the ED with complaint of chest pain with exertion associated with sob NSTEMI H/o CAD with 5 angioplasties and CABG. Continue home meds. Trops elevated 0.2->0.3 trending up. EKG shows normal sinus rhythm. Chest x-rays negative. His oxygen saturation on arrival was 92%. CTA reviewed No evidence of pulmonary embolism. 6 mm right lung nodule will need to be followed as OP. Patient aware, repeat CT as OP. Started heparin drip prior to cath Nitro for pain Monitor on telemetry S/P cardiac cath by Dr Meneses 08/20/16 s/p PCI to LAD and LCx Cont DAPT with Brillinta and Aspirin d/c groin sheath 08/21 Cont aggressive medical management for CAD.Patient to [facility] as OP with his cardiology Dr Dozier HTN, DM2, duodenal ulcer, prostate CA. Stable. Hold home meds for DM, resume at DC. Start insulin SS , accuchecks, monitor BS. Monitor VS and restart BP meds. DVT ppx SCD/TEDs, is on heparin drip Code Status full Discussed Condition With Patient, nurse DC whe improved and cleared by cardiology Shannon Aguilar MD Aug 21, 2016 08:34
--- NOTE | 2016-08-21 09:15 | PD.CARD.PN ---
Subjective Subjective Remarks no complaints no overnight events Objective Medications Current Medications Medications (Trade) Dose Ordered Sig/Gary Route Start Time Stop Time Status Last Admin (Zofran Inj) 4 mg Q6H PRN IVP 08/20/16 00:45 (Dulcolax Supp) 10 mg DAILY PRN MD 08/20/16 00:45 (Tylenol) 650 mg Q6H PRN PO 08/20/16 00:45 (Jefferson 5-325 Mg) 1 tab Q4H PRN PO 08/20/16 00:45 (Morphine Inj) 2 mg Q3H PRN IV 08/20/16 00:45 08/20/16 18:02 (Neurontin) 300 mg TID PO 08/20/16 09:00 08/21/16 08:16 (Lipitor) 80 mg DAILY PO 08/20/16 09:00 08/21/16 08:16 (NS Flush) 2 ml BID IVF 08/20/16 09:00 08/21/16 08:19 (NS Flush) 2 ml UNSCH PRN IVF 08/20/16 03:00 (Coreg) 6.25 mg BID PO 08/20/16 21:00 08/21/16 08:19 (Prinivil) 40 mg DAILY PO 08/20/16 19:00 08/21/16 08:19 (Imdur) 30 mg DAILY@07 PO 08/21/16 07:00 Aspirin 81 mg 81 mg DAILY PO 08/21/16 09:00 08/21/16 08:16 (NS 1000 ml Inj) 500 ml @ 125 mls/hr Q4H ONCE IV 08/21/16 05:15 08/21/16 09:14 08/21/16 05:15 Vital Signs / I&O Vital Signs Date Time Temp Pulse Resp B/P Pulse Ox O2 Delivery O2 Flow Rate FiO2 08/21/16 08:17 97 21 08/21/16 03:00 89 08/21/16 03:00 98.0 99 12 143/74 97 124/77 08/21/16 00:00 83 08/21/16 00:00 97.7 80 16 144/80 97 08/20/16 18:00 65 08/20/16 17:18 98.5 55 18 150/85 95 08/20/16 17:00 55 08/20/16 14:00 59 08/20/16 13:00 61 08/20/16 12:01 58 08/20/16 11:30 98.0 59 16 123/66 97 08/20/16 11:00 57 08/20/16 10:34 95 Nasal Cannula 2.00 08/20/16 10:00 58 I/O 08/20/16 08/20/16 08/20/16 08/21/16 08/21/16 08/21/16 07:00 15:00 23:00 07:00 15:00 23:00 Intake Total 1350 ml 980 ml Output Total 400 ml 1200 ml 700 ml Balance -400 ml 150 ml 280 ml Intake Oral 600 ml 480 ml IV Total 750 ml 500 ml Output Urine Total 400 ml 1200 ml 700 ml # Voids 4 # Bowel Movements 1 0 Physical Exam GENERAL: Well-nourished, well-developed patient. SKIN: Warm and dry. HEAD: Normocephalic. EYES: No scleral icterus. No injection or drainage. NECK: Supple, trachea midline. No JVD or lymphadenopathy. CARDIOVASCULAR: Regular rate and rhythm without murmurs, gallops, or rubs. RESPIRATORY: Breath sounds equal bilaterally. No accessory muscle use. GASTROINTESTINAL: Abdomen soft, non-tender, nondistended. EXTREMITIES: No cyanosis, or edema. NEUROLOGICAL: Awake, alert, and oriented x 3. Non-focal. Laboratory Laboratory Tests Test 08/20/16 08/20/16 08/20/16 08/21/16 10:40 11:05 23:35 05:09 Activated Partial 25.9 SEC 26.0 SEC Thromboplast Time Troponin I 0.45 NG/ML GREATER THAN 40.00 NG/ML Hemoglobin 13.7 GM/DL 13.5 GM/DL Hematocrit 41.3 % 40.9 % White Blood Count 11.6 TH/MM3 Red Blood Count 4.08 MIL/MM3 Mean Corpuscular Volume 100.2 FL Mean Corpuscular Hemoglobin 33.0 PG Mean Corpuscular Hemoglobin 33.0 % Concent Red Cell Distribution Width 14.1 % Platelet Count 228 TH/MM3 Mean Platelet Volume 8.6 FL Neutrophils (%) (Auto) 84.3 % Lymphocytes (%) (Auto) 8.2 % Monocytes (%) (Auto) 7.0 % Eosinophils (%) (Auto) 0.1 % Basophils (%) (Auto) 0.4 % Neutrophils # (Auto) 9.8 TH/MM3 Lymphocytes # (Auto) 1.0 TH/MM3 Monocytes # (Auto) 0.8 TH/MM3 Eosinophils # (Auto) 0.0 TH/MM3 Basophils # (Auto) 0.0 TH/MM3 CBC Comment DIFF FINAL Differential Comment Sodium Level 138 MEQ/L Potassium Level 4.2 MEQ/L Chloride Level 101 MEQ/L Carbon Dioxide Level 26.9 MEQ/L Anion Gap 10 MEQ/L Blood Urea Nitrogen 10 MG/DL Creatinine 0.74 MG/DL Estimat Glomerular Filtration 104 ML/MIN Rate Random Glucose 146 MG/DL Calcium Level 7.7 MG/DL Total Bilirubin 0.4 MG/DL Aspartate Amino Transf 250 U/L (AST/SGOT) Alanine Aminotransferase 63 U/L (ALT/SGPT) Alkaline Phosphatase 60 U/L Total Protein 6.5 GM/DL Albumin 2.9 GM/DL Assessment and Plan Problem List: (1) Elevated troponin Assessment and Plan: s/p PCI to LAD and LCx Cont DAPT with Brillinta and Aspirin Right groin sheath d/c without complications Groin site care After bedrest OOB Cont aggressive medical management for CAD (2) Chest pain Problem Qualifiers (1) Chest pain: Qualified Code: R07.9 - Chest pain, unspecified type Nestor Huynh MD Aug 21, 2016 09:15
[2016-08-21 10:46] LABS: HDL CHOLESTEROL 31.6 MG/DL (40.0-60.0)
[2016-08-21] MEDS: TICAGRELOR 90 MG TAB PO SCH ×2 (11:30→21:41)
[2016-08-21] MEDS: ISOSORBIDE MONONITRATE 30 MG TAB PO SCH (13:44)
--- NOTE | 2016-08-21 14:10 | EKG ---
Date Performed: 08/20/2016 Time Performed: 18:42:42 PTAGE: 71 years EKG: Marked sinus arrhythmia Acute anterior and inferior infarction appears new since the prior tracing. Abnormal ECG PREVIOUS TRACING : 08/19/2016 22.34 DOCTOR: Geo Galan Interpretating Date/Time 08/21/2016 14:08:01
--- NOTE | 2016-08-21 16:37 | MA ---
cc: CHIDI BAGLEY MD DATE: 08/20/2016 DATE OF : 1945 PROCEDURE PERFORMED 1. Successful PCI to mid-LAD in the setting of acute stent thrombosis. 2. Successful ACID CONCENTRATOR and stent of left common femoral artery. INDICATION ST elevation AK High risk Morbid Obesity PROCEDURE DESCRIPTION: Consigned signed. The patient was brought into the cardiac lab emergently. The right wrist was prepped and draped in a sterile fashion. Using 1% lidocaine for local anesthesia and a micropuncture kit, a 6 Surinamese slender sheath was inserted into the right radial artery. Patient had antispasmodic cocktail given. The patient had severe tortuosity of the ascending aorta as well as spasm, thus this approach was aborted. We got access from the left groin. For this, 1% lidocaine was used for local anesthesia and a micropuncture kit. A long 6 Surinamese sheath was inserted into the left common femoral artery, then a selective left coronary artery angiography was performed with a JL4 diagnostic catheter. Angiography was performed with multiple views. This revealed acute stent thrombosis of the previously placed stent in the LAD. The LM was engaged with EBU 3.5. Angiomax was given for IV anticoagulation. The vessel was wired with a Choice PT extra support wire. Followed by pre-dilation of the stent with a 2.0, 2.5 and 3.0 balloons with successful opening of the vessel. Then we inserted and deployed 2.75 x 15 drug-eluting stent. There was a dissection flap between stents. The stents were then post dilated with a noncompliant 3.0 balloons to high atmospheres. Final angiographic views revealed good expansion with EVIE-3 flow. The patient tolerated the procedure well. Then giving his significant obesity, the left femoral artery was closed with a Perclose device which failed for which manual pressure was applied. However, the patient was having significant abdominal pain worrisome for postoperative bleed. Thus, we got access from the right common femoral artery and put a 6 Surinamese sheath. We went up and over with a UF catheter over an stiff angle glide wire for selective angiography of the common external and left common femoral artery. This revealed an active retroperitoneal bleed. Thus we inserted a 8 mm peripheral balloon and tamponade the bleed for several minutes, however, the bleeding did not stopped. Thus we exchanged for an 11 Surinamese sheath and then we inserted over 0.018 wire, with a 10 mm covered stent successfully stopping the bleed. ESTIMATED BLOOD LOSS: 120 cc. CONCLUSIONS: 1. Successful PCI to mid LAD in the setting of acute stent thrombosis. 2. Successful stent placement in the left common femoral artery in the setting of retroperitoneal bleed. RECOMMENDATIONS: Continue dual antiplatelet agent with aspirin and Brilinta, as well as aggressive medical management for CAD. He will be admitted to the Intensive Care Unit and the right groin sheath will be discontinued after Angiomax has been weaned from the system. The case was discussed with the family. MD JOSEFINA Beauchamp/BLANCA /12:12 PM /4:04 PM MTDD
--- NOTE | 2016-08-21 19:03 | EC ---
Study Study Date:08/21/2016 STUDY CONCLUSIONS SUMMARY - Left ventricle: The cavity size was normal. Wall thickness was normal. Systolic function was moderately reduced. The estimated ejection fraction was in the range of 35% to 40%. Diffuse hypokinesis. - Mitral valve: Mild regurgitation. - Tricuspid valve: Mild regurgitation. If LV function is below 40, please consider prescribing an ACEI or ARB or document rationale for non-use. PROCEDURE DATA STUDY STATUS: Elective. Procedure: Transthoracic echocardiography. Image quality was good. Scanning was performed from the parasternal, apical, and subcostal acoustic windows. Study completion: The patient tolerated the procedure well. Transthoracic echocardiography. M-mode, complete 2D, complete spectral Doppler, and color Doppler. Patient status: Inpatient. CARDIAC ANATOMY LEFT VENTRICLE: The cavity size was normal. Wall thickness was normal. Systolic function was moderately reduced. The estimated ejection fraction was in the range of 35% to 40%. Diffuse hypokinesis. AORTIC VALVE: Trileaflet; normal thickness leaflets. Doppler: Transvalvular velocity was within the normal range. There was no stenosis. No regurgitation. AORTA: Aortic root: The aortic root was normal in size. MITRAL VALVE: Structurally normal valve. Doppler: Transvalvular velocity was within the normal range. There was no evidence for stenosis. Mild regurgitation. LEFT ATRIUM: The atrium was normal in size. RIGHT VENTRICLE: The cavity size was normal. Wall thickness was normal. PULMONIC VALVE: Doppler: Transvalvular velocity was within the normal range. There was no evidence for stenosis. No regurgitation. TRICUSPID VALVE: Structurally normal valve. Doppler: Transvalvular velocity was within the normal range. Mild regurgitation. PULMONARY ARTERY: The main pulmonary artery was normal-sized. Systolic pressure was within the normal range. RIGHT ATRIUM: The atrium was normal in size. PERICARDIUM: There was no pericardial effusion. SYSTEMIC VEINS: Inferior vena cava: The vessel was normal in size. BASIC MEASUREMENTS ADULT NORMAL Left ventricle LV internal dimension, ED, chordal level, 44.3 mm 43-52 PLAX LV internal dimension, ES, chordal level, 38 mm 23-38 PLAX Fractional shortening, chordal level, PLAX *14 % >29 LV posterior wall thickness, ED 11.5 mm IVS/LVPW ratio, ED 1.05 <1.3 Ventricular septum Septal thickness, ED 12.1 mm Aortic valve Leaflet separation 21 mm 15-26 Right ventricle RV internal dimension, ED, PLAX 37.4 mm 19-38 BASIC MEASUREMENTS ADULT NORMAL Aortic valve Leaflet separation 21 mm 15-26 Aorta Root diameter, ED 28 mm 20-37 Left atrium Anterior-posterior dimension, ES *46 mm 19-40 LA/aortic root ratio 1.64 LEGEND: Mean values are shown as u=mean value. Asterisk (*) wilson values outside specified normal range. Prepared and signed by Nestor Huynh [id number]
[2016-08-21 19:19] LABS: HEMATOCRIT 38.3 % (39.0-51.0)
[2016-08-21] MEDS ORDERED: ASPI81TA11 PO (20:26)
[2016-08-21] MEDS ORDERED: BRIL90TA PO (20:26)
[2016-08-21] MEDS ORDERED: LISI-515 PO (20:26)
--- NOTE | 2016-08-21 20:27 | HHI.DCPOC ---
Discharge Care Plan Goals to Promote Your Health * To prevent worsening of your condition and complications * To maintain your health at the optimal level Directions to Meet Your Goals Take your medications as prescribed Follow your dietary instruction Follow activity as directed Keep your appointments as scheduled Take your immunizations and boosters as scheduled If your symptoms worsen call your PCP, if no PCP go to Urgent Care Center or Emergency Room Smoking is Dangerous to Your Health. Avoid second hand smoke Call the 24-hour hour crisis hotline for domestic abuse at Shannon Aguilar MD Aug 21, 2016 20:27
[2016-08-21] MEDS ORDERED: CARV3.125 PO (20:28)
[2016-08-22] VITALS (9 sets, daily range): BP systolic 104–112; BP diastolic 58–65; PULSE 81–88; RESP 20–22; TEMP 98.6–98.7; O2SAT 96–98
[2016-08-22] MEDS: ISOSORBIDE MONONITRATE 30 MG TAB PO SCH (06:51)
--- NOTE | 2016-08-22 08:07 | HHI.DS ---
Discharge Summary Admission Date Aug 20, 2016 at 02:55 Discharge Date: Aug 22, 2016 Admitting Diagnosis chest pain; nstemi (1) CAD (coronary artery disease) ICD Code: I25.10 Diagnosis: Principal (2) Chest pain ICD Code: R07.9 Diagnosis: Principal (3) Elevated troponin ICD Code: R79.89 Diagnosis: Principal Procedures S/P cardiac cath by Dr Meneses 08/20/16 ---> PCI to LAD and LCx by Dr Meneses 08/20/16 Brief History - From Admission 71-year-old male with PMH of CAD with CABG, HTN, DM2, duodenal ulcer, prostate CA came to the ED with complaint of chest pain associated with sob. He was walking his dogs around 7 when he had an onset of left lateral chest pain 6/10 in intensity radiating to his left side. He felt short of breath with the pain. He went home and the pain was fairly persistent. He rated it as a 6 or 7 /10. He has a home oxygen tank and he uses some oxygen with some relief. He has a history of coronary artery disease. He has had bypass surgery and 5 stents. He says the last stent was about 20 years ago. In 2009 had a large pulmonary embolus week after surgery for prostate cancer. He is not on blood thinners now other than ASA. He does not smoke. He does take aspirin daily and took one today, He took NGL spray prior to admission 3 puffs. Says he feels some pressure in his chest now, and pain is 2/10. No associated diaphoresis, nausea, palpitations. No other symptoms. He initially presented to [facility], however trops trending up , Dr Terry wayne, recommends transferring the patient to [facility] for cath Was seen by Dr Meneses, plan for cardiac cath today in the afternoon. CBC/BMP: 08/21/16 1829 08/21/16 0509 Significant Findings Laboratory Tests Test 08/19/16 08/20/16 08/20/16 08/21/16 23:00 02:00 11:05 05:09 Red Blood Count 4.15 MIL/MM3 4.08 MIL/MM3 (4.50-5.90) (4.50-5.90) Activated Partial 23.4 SEC Thromboplast Time (24.3-30.1) Carbon Dioxide Level 33.5 MEQ/L (21.0-32.0) Estimat Glomerular Filtration 73 ML/MIN (>89) Rate Random Glucose 152 MG/DL 146 MG/DL (74-106) (74-106) Troponin I 0.20 NG/ML 0.30 NG/ML 0.45 NG/ML GREATER THAN (0.02-0.05) (0.02-0.05) (0.02-0.05) 40.00 NG/ML (0.02-0.05) White Blood Count 11.6 TH/MM3 (4.0-11.0) Mean Corpuscular Volume 100.2 FL (80.0-100.0) Neutrophils (%) (Auto) 84.3 % (16.0-70.0) Lymphocytes (%) (Auto) 8.2 % (9.0-44.0) Neutrophils # (Auto) 9.8 TH/MM3 (1.8-7.7) Calcium Level 7.7 MG/DL (8.5-10.1) Aspartate Amino Transf 250 U/L (15-37) (AST/SGOT) Albumin 2.9 GM/DL (3.4-5.0) Test 08/21/16 08/21/16 09:40 18:29 Triglycerides Level 237 MG/DL (42-150) HDL Cholesterol 31.6 MG/DL (40.0-60.0) Hemoglobin 12.6 GM/DL (13.0-17.0) Hematocrit 38.3 % (39.0-51.0) Imaging Reported Meds & Active Scripts Active Coreg (Carvedilol) 3.125 Mg Tab 6.25 Mg PO BID Lisinopril 20 Mg Tab 40 Mg PO DAILY Brilinta (Ticagrelor) 90 Mg Tab 90 Mg PO BID Aspirin EC (Aspirin) 81 Mg Tabdr 81 Mg PO DAILY Reported Nitroglycerin Lingual [place] (Nitroglycerin) 400 Mcg/Act [place] 1 [place] SL DIRECTED PRN ONE SPRAY NEEDED FOR CHEST PAIN, MAY REPEAT EVERY FIVE MINUTES FOR A TOTAL OF 3 DOSES OR CALL 911 IF NO RELIEF Folic Acid 800 Mcg Tab 800 Mcg PO DAILY Gabapentin 300 Mg Cap 300 Mg PO TID Isosorbide Mononitrate 20 Mg Tab 30 Mg PO BID Take 2 doses 7 hours apart. K-Tab (Potassium Chloride) 20 Meq Tab 20 Meq PO BID Prilosec (Omeprazole) 20 Mg Cap 20 Mg PO DAILY Furosemide 80 Mg Tab 80 Mg PO BID Crestor (Rosuvastatin Calcium) 40 Mg Tab 40 Mg PO DAILY PE at Discharge GENERAL: This is a pleasant 71 yo male, obese, well-nourished, well-developed patient, in no apparent distress. SKIN: No ecchymoses or lesions. Cool and dry. HEAD: Atraumatic. Normocephalic. No temporal or scalp tenderness. EYES: Pupils equal round and reactive. Extraocular motions intact. No scleral icterus. No injection or drainage. ENT: Nose without bleeding, purulent drainage or septal hematoma. Throat without erythema, tonsillar hypertrophy or exudate. Uvula midline. Airway patent. NECK: Trachea midline. No JVD or lymphadenopathy. Supple, nontender, no meningeal signs. CARDIOVASCULAR: Regular rate and rhythm without murmurs, gallops, or rubs. RESPIRATORY: Clear to auscultation. Breath sounds equal bilaterally. No wheezes , rales, or rhonchi. GASTROINTESTINAL: Abdomen soft, obese, non-tender, nondistended. No hepato- splenomegaly, or palpable masses. No guarding. MUSCULOSKELETAL: Extremities without clubbing, cyanosis, or edema. No joint tenderness, effusion, or edema noted. No calf tenderness. Negative Homans sign bilaterally. NEUROLOGICAL: Awake and alert. Cranial nerves II through XII intact. Motor and sensory grossly within normal limits. Five out of 5 muscle strength in all muscle groups. Normal speech. Pt update on day of discharge Patient is in the chair, ambulates. Feels much better. no chest pain overnight, Denies chest pain , n/v/d/c. Hospital Course 71-year-old male with PMH of CAD with CABG, HTN, DM2, duodenal ulcer, prostate CA came to the ED with complaint of chest pain with exertion associated with sob NSTEMI H/o CAD with 5 angioplasties and CABG. Continue home meds. Trops elevated 0.2->0.3 trending up. EKG shows normal sinus rhythm. Chest x-rays negative. His oxygen saturation on arrival was 92%. CTA reviewed No evidence of pulmonary embolism. 6 mm right lung nodule will need to be followed as OP. Patient aware, repeat CT as OP. Started heparin drip prior to cath Nitro for pain Monitor on telemetry S/P cardiac cath by Dr Meneses 08/20/16 s/p PCI to LAD and LCx by Dr Meneses 08/20/16 Cont DAPT with Brillinta and Aspirin d/c groin sheath 08/21 Cont aggressive medical management for CAD.[facility] as [facility] with his cardiology Dr Dozier HTN, DM2, duodenal ulcer, prostate CA. Stable. Hold home meds for DM, resume at DC. Start insulin SS , accuchecks, monitor BS. Monitor VS and restart BP meds. DVT ppx SCD/TEDs, is on heparin drip Code Status full Discussed Condition With Patient, nurse Improved and cleared by cardiology Dr Meneses. Patient was DC in fairly good condition to follow up as oP with Dr Dozier cards. To follow up as OP with PCP and consultants. Pt Condition on Discharge: Fair Discharge Disposition: Disch w/ Home Health Serv Discharge Time: > 30 minutes Discharge Instructions DIET: Follow Instructions for: Heart Healthy Diet Activities you can perform: Regular-No Restrictions Follow up Referrals: Cardiology - 1 Week with Anyi Dozier MD PCP Follow-up - 3-5 Days New Medications: Aspirin DR (Aspirin EC) 81 Mg Tabdr 81 MG PO DAILY Blood Clot Prevention #30 TAB Carvedilol (Coreg) 3.125 Mg Tab 6.25 MG PO BID Blood Pressure Management #60 TAB Lisinopril (Lisinopril) 20 Mg Tab 40 MG PO DAILY Blood Pressure Management #30 TAB Ticagrelor (Brilinta) 90 Mg Tab 90 MG PO BID Blood Clot Prevention #60 TAB Continued Medications: Folic Acid (Folic Acid) 800 Mcg Tab 800 MCG PO DAILY Nutritional Supplement Ref 0 TAB Furosemide (Furosemide) 80 Mg Tab 80 MG PO BID #60 Ref 0 TAB Gabapentin (Gabapentin) 300 Mg Cap 300 MG PO TID #90 Ref 0 CAP Isosorbide Mononitrate (Isosorbide Mononitrate) 20 Mg Tab 30 MG PO BID Take 2 doses 7 hours apart. Prevent Chest Pain #60 Ref 0 TAB Nitroglycerin Lingual [place] (Nitroglycerin Lingual [place]) 400 Mcg/Act [place] 1 SPRAY SL DIRECTED ONE SPRAY NEEDED FOR CHEST PAIN, MAY REPEAT EVERY FIVE MINUTES FOR A TOTAL OF 3 DOSES OR CALL 911 IF NO RELIEF PRN CHEST PAIN #1 Ref 0 CONTAINER Omeprazole (Prilosec) 20 Mg Cap 20 MG PO DAILY #30 Ref 0 CAP Potassium Chloride ER (K-Tab) 20 Meq Tab 20 MEQ PO BID Electrolyte Replacement #60 Ref 0 TAB Rosuvastatin (Crestor) 40 Mg Tab 40 MG PO DAILY Cholesterol Management #30 Ref 0 TAB Discontinued Medications: Aspirin (Aspirin) 325 Mg Tab 325 MG PO DAILY #30 Ref 0 TAB Captopril (Captopril) 12.5 Mg Tab 12.5 MG PO BIDAC Take 1 hour before meals. #60 Ref 0 TAB Carvedilol (Coreg) 3.125 Mg Tab 3.125 MG PO BID #60 Ref 0 TAB Shannon Aguilar MD Aug 22, 2016 08:07
--- NOTE | 2016-08-22 08:36 | HHI.FF ---
Face to Face Verification Diagnosis: (1) CAD (coronary artery disease) (2) Chest pain (3) Elevated troponin Physical Therapy Order: Evaluate and Treat Home Health Nursing Order: Medical education Signs/symptoms of disease process Medication education-adverse effect Nursing assessment with vital signs I have seen patient Alireza Ceballos Sr Rhonda on 08/22/16. My clinical findings support the need for the requested home health care services because: Ltd mobility - disease progression I certify that my clinical findings support that this patient is homebound because: Post-op weakness Shannon Aguilar MD Aug 22, 2016 08:36
[2016-08-22] MEDS: LISINOPRIL 20 MG TAB PO SCH (09:02)
[2016-08-22] MEDS: TICAGRELOR 90 MG TAB PO SCH (09:02)
[2016-08-22] MEDS: GABAPENTIN 300 MG CAP PO SCH (09:02)
[2016-08-22] MEDS: SODIUM CHLORIDE 0.9% FLUSH 5 ML FLUSH IVF SCH (09:03)
[2016-08-22] MEDS: ASPIRIN EC 81 MG TABEC PO SCH (09:03)
[2016-08-22] MEDS: ATORVASTATIN 80 MG TAB PO SCH (09:03)
[2016-08-22] MEDS: CARVEDILOL 3.125 MG TAB PO SCH (09:03)
--- NOTE | 2016-08-22 09:07 | PD.CARD.PN ---
Subjective Subjective Remarks no complaints no overnight events Objective Medications Current Medications Medications (Trade) Dose Ordered Sig/Gary Route Start Time Stop Time Status Last Admin (Zofran Inj) 4 mg Q6H PRN IVP 08/20/16 00:45 (Dulcolax Supp) 10 mg DAILY PRN TN 08/20/16 00:45 (Tylenol) 650 mg Q6H PRN PO 08/20/16 00:45 ([place] 5-325 Mg) 1 tab Q4H PRN PO 08/20/16 00:45 (Morphine Inj) 2 mg Q3H PRN IV 08/20/16 00:45 08/20/16 18:02 (Neurontin) 300 mg TID PO 08/20/16 09:00 08/21/16 18:39 (Lipitor) 80 mg DAILY PO 08/20/16 09:00 08/21/16 08:16 (NS Flush) 2 ml BID IVF 08/20/16 09:00 08/21/16 21:41 (NS Flush) 2 ml UNSCH PRN IVF 08/20/16 03:00 (Coreg) 6.25 mg BID PO 08/20/16 21:00 08/21/16 08:19 (Prinivil) 40 mg DAILY PO 08/20/16 19:00 08/21/16 08:19 (Imdur) 30 mg DAILY@07 PO 08/21/16 07:00 08/22/16 06:51 (Ecotrin Ec) 81 mg DAILY PO 08/21/16 09:00 08/21/16 08:16 (Brilinta) 90 mg BID PO 08/21/16 10:15 08/21/16 21:41 Vital Signs / I&O Vital Signs Date Time Temp Pulse Resp B/P Pulse Ox O2 Delivery O2 Flow Rate FiO2 08/22/16 08:27 96 Nasal Cannula 2.00 08/22/16 07:13 98 Nasal Cannula 2.00 08/22/16 06:00 88 08/22/16 05:00 87 08/22/16 04:00 86 08/22/16 03:00 86 08/22/16 03:00 98.7 86 22 104/65 96 08/22/16 02:00 84 08/22/16 01:00 84 08/22/16 00:00 81 08/21/16 23:00 88 08/21/16 23:00 97.9 88 22 105/55 96 08/21/16 22:00 96 08/21/16 21:15 93 Nasal Cannula 2.00 08/21/16 21:00 95 08/21/16 20:00 89 08/21/16 19:00 91 08/21/16 19:00 98.6 91 24 102/59 94 08/21/16 19:00 96 Nasal Cannula 2.00 08/21/16 18:45 96/52 08/21/16 18:30 87/51 08/21/16 18:04 106 08/21/16 18:00 96/57 08/21/16 17:53 93 08/21/16 17:45 84/54 08/21/16 16:00 83 08/21/16 15:28 92 Nasal Cannula 2.00 08/21/16 15:28 97.8 92 22 96/56 92 08/21/16 15:00 92 08/21/16 12:00 98.7 94 16 111/62 97 08/21/16 12:00 94 I/O 08/21/16 08/21/16 08/21/16 08/22/16 08/22/16 08/22/16 07:00 15:00 23:00 07:00 15:00 23:00 Intake Total 980 ml 600 ml 620 ml 420 ml Output Total 700 ml 600 ml 250 ml 850 ml Balance 280 ml 0 ml 370 ml -430 ml Intake Oral 480 ml 600 ml 120 ml 420 ml IV Total 500 ml 500 ml Output Urine Total 700 ml 600 ml 250 ml 850 ml # Bowel Movements 0 0 0 Physical Exam GENERAL: Well-nourished, well-developed patient. SKIN: Warm and dry. HEAD: Normocephalic. EYES: No scleral icterus. No injection or drainage. NECK: Supple, trachea midline. No JVD or lymphadenopathy. CARDIOVASCULAR: Regular rate and rhythm without murmurs, gallops, or rubs. RESPIRATORY: Breath sounds equal bilaterally. No accessory muscle use. GASTROINTESTINAL: Abdomen soft, non-tender, nondistended. EXTREMITIES: No cyanosis, or edema. NEUROLOGICAL: Awake, alert, and oriented x 3. Non-focal. Laboratory Laboratory Tests Test 08/21/16 08/21/16 09:40 18:29 Triglycerides Level 237 MG/DL Cholesterol Level 154 MG/DL LDL Cholesterol 75 MG/DL HDL Cholesterol 31.6 MG/DL Cholesterol/HDL Ratio 4.87 RATIO Hemoglobin 12.6 GM/DL Hematocrit 38.3 % Assessment and Plan Problem List: (1) Elevated troponin Assessment and Plan: s/p PCI to LAD and LCx s/p [employer]/stent to LCFA Doing well Chest pain free Ambulating without difficulties Cont DAPT with ASA and Brillinta Stable to be d/c home from CV standpoint Encourage ambulation and diet (2) Chest pain Problem Qualifiers (1) Chest pain: Qualified Code: R07.9 - Chest pain, unspecified type Nestor Huynh MD Aug 22, 2016 09:07
[2016-08-22] MEDS ORDERED: IOHEXOL 350 MG/ML 50 ML BTL (for Cath Lab) OTHER ONE (11:15)
[2016-08-22] MEDS ORDERED: IOHEXOL 350 MG/ML 100 ML BTL (for Cath Lab) OTHER ONE ×2 (11:15)
--- NOTE | 2016-08-22 20:26 | EKG ---
Date Performed: 08/21/2016 Time Performed: 17:54:50 PTAGE: 71 years EKG: Sinus rhythm . Extensive infarct - age undetermined Low QRS voltages in precordial leads Abnormal ECG PREVIOUS TRACING : 08/20/2016 18.42 Compared to the previous tracing which showed acute PA, dev eloping infarction now present DOCTOR: Maria Isabel Cr Interpretating Date/Time 08/22/2016 20:25:15
== END 2016-08-22 11:16 | disposition home health service (06) | DRG 246 ==
LOC: PHED 22:33 → PHEDA 08-20 02:55 → HCIS 08-20 05:43 → HCVR 08-20 23:55 → HCPC 08-21 15:09
PROVIDERS: ADMIT Hospitalist; ATTEND Hospitalist
PROC: 027034Z Dilation of Coronary Artery, One Artery with Drug-eluting Intraluminal Device, Percutaneous Approach (ICD-10-PCS; 2016-08-20)
PROC: 047L3D1 Dilation of Left Femoral Artery with Intraluminal Device, using Drug-Coated Balloon, Percutaneous Approach (ICD-10-PCS; 2016-08-20)
PROC: 4A023N7 Measurement of Cardiac Sampling and Pressure, Left Heart, Percutaneous Approach (ICD-10-PCS; 2016-08-20)
PROC: B2111ZZ Fluoroscopy of Multiple Coronary Arteries using Low Osmolar Contrast (ICD-10-PCS; 2016-08-20)
PROC: B2151ZZ Fluoroscopy of Left Heart using Low Osmolar Contrast (ICD-10-PCS; 2016-08-20)
PROC: B41F1ZZ Fluoroscopy of Right Lower Extremity Arteries using Low Osmolar Contrast (ICD-10-PCS; 2016-08-20)
PROC: B2101ZZ Fluoroscopy of Single Coronary Artery using Low Osmolar Contrast (ICD-10-PCS; 2016-08-20)
PROC: 027136Z Dilation of Coronary Artery, Two Arteries with Three Drug-eluting Intraluminal Devices, Percutaneous Approach (ICD-10-PCS; principal; 2016-08-20 13:30)
DX: I21.4 Non-ST elevation (NSTEMI) myocardial infarction (principal); Q25.46 Tortuous aortic arch; C61 Malignant neoplasm of prostate; E11.9 Type 2 diabetes mellitus without complications; Z68.41 Body mass index [BMI] 40.0-44.9, adult; I97.410 Intraoperative hemorrhage and hematoma of a circulatory system organ or structure complicating a cardiac catheterization; T82.867A Thrombosis due to cardiac prosthetic devices, implants and grafts, initial encounter; E66.01 Morbid (severe) obesity due to excess calories; I25.110 Atherosclerotic heart disease of native coronary artery with unstable angina pectoris; R91.1 Solitary pulmonary nodule; I25.2 Old myocardial infarction; K21.9 Gastro-esophageal reflux disease without esophagitis; I10 Essential (primary) hypertension; M19.90 Unspecified osteoarthritis, unspecified site; E78.5 Hyperlipidemia, unspecified; Y83.1 Surgical operation with implant of artificial internal device as the cause of abnormal reaction of the patient, or of later complication, without mention of misadventure at the time of the procedure; Y84.0 Cardiac catheterization as the cause of abnormal reaction of the patient, or of later complication, without mention of misadventure at the time of the procedure; Y92.234 Operating room of hospital as the place of occurrence of the external cause; Z79.01 Long term (current) use of anticoagulants; Z86.711 Personal history of pulmonary embolism; Z87.891 Personal history of nicotine dependence; Z95.1 Presence of aortocoronary bypass graft
CPT/HCPCS: 37221; 71010; 71275; 75710; 75736; 80048; 80053; 80061; 83735; 83880; 84484; 85002; 85014; 85018; 85025; 85610; 85730; 92928; 92929; 92941; 93005; 93306; 93454; 94620; 96374; 96375; C1725; C1760; C1769; C1874; C1887; C1893; G0269; J0583; J0690; J1644; J2250; J2270; J2310; J2370; J3010; J7030; Q9967

== ENCOUNTER 2018-04-04 11:49 | Observation (INO) ==
[2018-04-04] MEDS ORDERED: Morphine Inj 4 MG/ML Vial IV.PUSH ONE (12:04)
--- NOTE | 2018-04-04 12:04 | ED ---
HPI General Chief Complaint: Chest Pain Stated Complaint: Chest pain Source: patient Mode of arrival: ambulatory Limitations: no limitations History of Present Illness HPI narrative: Equipment Driver is Dr. Dozier Patient notes in complaining of left-sided chest pain radiating towards his left upper extremity that became persistent since 3 AM last night, patient stated that during the day he was able to play golf and had a normal day. But since 3 AM in the morning he has had this pain has not settled down or decreased or gone away despite the use of nitroglycerin sublingual of his own at home. MD complaint: chest pain Complete Quality Measures for STEMI Alert Patients STEMI Alert: No Onset (ago): hour(s) Duration: constant Onset: during rest Pain location: substernal and left chest Severity: moderate Severity scale (1-10): 8 Quality: heaviness Pain radiation: LUE Relieving factors: nothing Exacerbating factors: nothing Treatments prior to arrival chest pain: nitroglycerin (Pressure persisted despite using home nitro sublingual 3,) Related Data Home Medications Medication Instructions Recorded Confirmed Co Q-10 1 tab CHEW DAILY 04/04/18 04/04/18 ascorbic acid (vitamin C) [Vitamin 500 mg PO DAILY 04/04/18 04/04/18 C] aspirin [Aspir-81] 81 mg PO DAILY 04/04/18 04/04/18 carvedilol 3.125 mg PO BID 04/04/18 04/04/18 cholecalciferol (vitamin D3) 2,000 unit PO DAILY 04/04/18 04/04/18 [Vitamin D3] fluoxetine 20 mg PO DAILY 04/04/18 04/04/18 furosemide 80 mg PO DAILY 04/04/18 04/04/18 gabapentin 300 mg PO DAILY 04/04/18 04/04/18 glipizide 5 mg PO DAILY 04/04/18 04/04/18 glucosamine HCl 1,500 mg PO DAILY 04/04/18 04/04/18 isosorbide mononitrate 30 mg PO DAILY 04/04/18 04/04/18 lactobacillus combination no.4 3,000 mmu cells PO DAILY 04/04/18 04/04/18 [Probiotic] metformin 1,000 mg PO BID 04/04/18 04/04/18 multivitamin 1 tab PO DAILY 04/04/18 04/04/18 niacin 500 mg PO DAILY 04/04/18 04/04/18 omeprazole 20 mg PO DAILY 04/04/18 04/04/18 rosuvastatin 20 mg PO DAILY 04/04/18 04/04/18 vitamin E 400 unit PO DAILY 04/04/18 04/04/18 Previous Rx's Medication Instructions Recorded amlodipine 5 mg PO DAILY #30 tab 04/05/18 Allergies Allergy/AdvReac Type Severity Reaction Status Date / Time No Known Allergies Allergy Verified 04/04/18 12:30 Review of Systems ROS: all other systems reviewed are negative PMFSH History History Provided By: Patient Medical History Medical History Diabetes 1.5, managed as type 2 (Acute) Gastroesophageal reflux (Acute) High cholesterol (Acute) History of coronary artery disease (Acute) History of myocardial infarction (Acute) History of prostate cancer (Acute) History of pulmonary embolism (Acute) Hypertension (Acute) Social History Social History Substance History: No History of Abuse Second Hand Smoke Exposure: No Smoking Status: Former smoker Tobacco Type: Cigarettes Number of Pack-Years (if former smoker): 20 (Quit smoking in 1997) How Often Do You Have a Drink Containing Alcohol: 4 or more times a week ( Patient drinks approximate 6 drinks daily) Recent Travel in [facility] within the Last 8 Weeks: No Recent Out of Country Travel within the Last 8 Weeks: No Exam Narrative Exam Narrative: GENERAL: Well-nourished, well-developed patient in no apparent distress. SKIN: Warm and dry. HEAD: Atraumatic. Normocephalic. EYES: Pupils equal and round. No scleral icterus. No injection or drainage. ENT: No nasal bleeding or discharge. Mucous membranes pink and moist. NECK: Trachea midline. No JVD. CARDIOVASCULAR: Regular rate and rhythm. no rubs or gallops RESPIRATORY: No accessory muscle use. Clear to auscultation. Breath sounds equal bilaterally. GASTROINTESTINAL: Abdomen soft, non-tender, nondistended. No rebound or guarding MUSCULOSKELETAL: Extremities without clubbing, cyanosis, or edema. No obvious deformities. NEUROLOGICAL: Awake and alert. No obvious cranial nerve deficits. Motor grossly within normal limits. Five out of 5 muscle strength in the arms and legs. Normal speech. PSYCHIATRIC: Appropriate mood and affect; insight and judgment normal. Course Initial Documented Vital Signs Temperature 98.0 F 04/04/18 12:06 Pulse Rate 94 H 04/04/18 12:06 Respiratory Rate 20 04/04/18 12:06 Blood Pressure 156/87 H 04/04/18 12:06 Pulse Oximetry 92 L 04/04/18 12:06 Last Documented Vital Signs Temperature 96.9 F L 04/05/18 11:12 Pulse Rate 70 04/05/18 11:12 Respiratory Rate 20 04/05/18 11:12 Blood Pressure 132/70 04/05/18 11:12 Pulse Oximetry 95 04/05/18 11:12 Medical Decision Making MDM Narrative Medical decision making narrative: CT chest was read as negative for any pulmonary embolus, pneumonia, pericardial effusion, or pleural effusion. CBC is negative for any leukocytosis left shift anemia or abnormal platelet count Electrolytes are all within normal limits. Normal kidney liver and pancreatic functions First set of cardiac enzymes negative Medical Screen Exam Complete: Yes Emergency Medical Condition: Yes Differential Diagnosis Differential Diagnosis: OK versus non-STEMI versus pneumonia versus pericardial effusion versus pleural effusion versus coronary embolus Lab Data Result diagrams: 04/04/18 12:05 04/04/18 12:05 Lab Results 04/04/18 04/04/18 04/04/18 Range/Units 12:05 12:05 12:05 CBC w Diff Auto diff final WBC 7.8 (4.0-11.0) th/mm3 RBC 4.71 (4.50-5.90) mil/mm3 Hgb 15.7 (13.0-17.0) gm/dL Hct 46.6 (39.0-51.0) % MCV 99.0 (80.0-100.0) fL MCH 33.3 (27.0-34.0) pg MCHC 33.7 (32.0-36.0) % RDW 14.4 (11.6-17.2) % Plt Count 249 (150-450) th/mm3 MPV 9.6 (7.0-11.0) fL Neut % (Auto) 67.7 (16.0-70.0) % Lymph % (Auto) 22.5 (9.0-44.0) % Storey % (Auto) 6.3 (0.0-8.0) % Eos % (Auto) 2.8 (0.0-4.0) % Baso % (Auto) 0.7 (0.0-2.0) % Neut # (Auto) 5.2 (1.8-7.7) th/mm3 Lymph # (Auto) 1.7 (1.0-4.8) th/mm3 Storey # (Auto) 0.5 (0.0-0.9) th/mm3 Eos # (Auto) 0.2 (0.0-0.4) th/mm3 Baso # (Auto) 0.1 (0.0-0.2) th/mm3 WBC Differential . Differential Comment . PT (9.8-11.6) sec INR Ratio APTT (24.3-30.1) sec Sodium 142 (136-145) meq/L Potassium 4.4 (3.5-5.1) meq/L Chloride 103 (98-107) meq/L Carbon Dioxide 31.0 (21.0-32.0) meq/L Anion Gap 8 (5-15) meq/L BUN 16 (7-18) mg/dL Creatinine 1.20 (0.60-1.30) mg/dL Estimated GFR 59 L (>89) mL/min POC Glucose (68-110) mg/dl Random Glucose 156 H (74-106) mg/dL Calcium 8.7 (8.5-10.1) mg/dL Total Bilirubin 0.4 (0.2-1.0) mg/dL AST 30 (15-37) U/L ALT 37 (12-78) U/L Alkaline Phosphatase 63 (45-117) U/L Total Creatine Kinase 100 (39-308) U/L Troponin I 0.04 (0.02-0.05) ng/mL B-Natriuretic Peptide 119 H (0-100) pg/mL Total Protein 7.6 (6.4-8.2) g/dL Albumin 3.7 (3.4-5.0) g/dL Lipase 176 (73-393) U/L 04/04/18 04/04/18 04/04/18 Range/Units 15:05 15:05 16:28 CBC w Diff WBC (4.0-11.0) th/mm3 RBC (4.50-5.90) mil/mm3 Hgb (13.0-17.0) gm/dL Hct (39.0-51.0) % MCV (80.0-100.0) fL MCH (27.0-34.0) pg MCHC (32.0-36.0) % RDW (11.6-17.2) % Plt Count (150-450) th/mm3 MPV (7.0-11.0) fL Neut % (Auto) (16.0-70.0) % Lymph % (Auto) (9.0-44.0) % Storey % (Auto) (0.0-8.0) % Eos % (Auto) (0.0-4.0) % Baso % (Auto) (0.0-2.0) % Neut # (Auto) (1.8-7.7) th/mm3 Lymph # (Auto) (1.0-4.8) th/mm3 Storey # (Auto) (0.0-0.9) th/mm3 Eos # (Auto) (0.0-0.4) th/mm3 Baso # (Auto) (0.0-0.2) th/mm3 WBC Differential Differential Comment PT 10.6 (9.8-11.6) sec INR 1.0 Ratio APTT 23.3 L (24.3-30.1) sec Sodium (136-145) meq/L Potassium (3.5-5.1) meq/L Chloride (98-107) meq/L Carbon Dioxide (21.0-32.0) meq/L Anion Gap (5-15) meq/L BUN (7-18) mg/dL Creatinine (0.60-1.30) mg/dL Estimated GFR (>89) mL/min POC Glucose 113 H (68-110) mg/dl Random Glucose (74-106) mg/dL Calcium (8.5-10.1) mg/dL Total Bilirubin (0.2-1.0) mg/dL AST (15-37) U/L ALT (12-78) U/L Alkaline Phosphatase (45-117) U/L Total Creatine Kinase 82 (39-308) U/L Troponin I 0.04 (0.02-0.05) ng/mL B-Natriuretic Peptide (0-100) pg/mL Total Protein (6.4-8.2) g/dL Albumin (3.4-5.0) g/dL Lipase (73-393) U/L 08/31/18 08/31/18 09/01/18 Range/Units 18:05 21:37 07:52 CBC w Diff WBC (4.0-11.0) th/mm3 RBC (4.50-5.90) mil/mm3 Hgb (13.0-17.0) gm/dL Hct (39.0-51.0) % MCV (80.0-100.0) fL MCH (27.0-34.0) pg MCHC (32.0-36.0) % RDW (11.6-17.2) % Plt Count (150-450) th/mm3 MPV (7.0-11.0) fL Neut % (Auto) (16.0-70.0) % Lymph % (Auto) (9.0-44.0) % Storey % (Auto) (0.0-8.0) % Eos % (Auto) (0.0-4.0) % Baso % (Auto) (0.0-2.0) % Neut # (Auto) (1.8-7.7) th/mm3 Lymph # (Auto) (1.0-4.8) th/mm3 Storey # (Auto) (0.0-0.9) th/mm3 Eos # (Auto) (0.0-0.4) th/mm3 Baso # (Auto) (0.0-0.2) th/mm3 WBC Differential Differential Comment PT (9.8-11.6) sec INR Ratio APTT (24.3-30.1) sec Sodium (136-145) meq/L Potassium (3.5-5.1) meq/L Chloride (98-107) meq/L Carbon Dioxide (21.0-32.0) meq/L Anion Gap (5-15) meq/L BUN (7-18) mg/dL Creatinine (0.60-1.30) mg/dL Estimated GFR (>89) mL/min POC Glucose 142 H 180 H (68-110) mg/dl Random Glucose (74-106) mg/dL Calcium (8.5-10.1) mg/dL Total Bilirubin (0.2-1.0) mg/dL AST (15-37) U/L ALT (12-78) U/L Alkaline Phosphatase (45-117) U/L Total Creatine Kinase 75 (39-308) U/L Troponin I 0.04 (0.02-0.05) ng/mL B-Natriuretic Peptide (0-100) pg/mL Total Protein (6.4-8.2) g/dL Albumin (3.4-5.0) g/dL Lipase (73-393) U/L Imaging Data Radiologist's impression: Chest CTA 04/04/18 12:04 CONCLUSION: 1. No evidence for PE. 2. Gynecomastia. Chest X-Ray 04/04/18 12:04 CONCLUSION: No acute cardiopulmonary disease. Myocardial Perfusion Scan Nuc Med 04/05/18 06:00 CONCLUSION: 1. Hypokinesis with EF of 39%, and fixed perfusion defects noted. 2. No definite reversible perfusion defects identified at this time. ECG Data EKG Prior to Arrival: No Attestation: I personally reviewed and interpreted this ECG as follows: Prior ECG tracings: not available for review Interpretation: Normal sinus rhythm, 95 bpm, PVCs, significant Q waves on the inferior leads of 2 3 and aVF, no evidence of any ST elevation or concurrent ST depressions noted either of any anatomical leads. Discharge Plan Discharge Disposition Patient Disposition: 30 Still Patient Discharge Condition Condition: Stable Discharge Order Discharge Orders: Discharge Order (Routine); Ordered 04/05/18 Ordered By: Temo Ring Discharge Details Anticipated Discharge Date: 04/05/18 Diagnosis: Chest pain Physicians Team ED Provider: Calrin Higginbotham Primary Care Provider: Javed Cummings Attending Provider: Dasha Garnett Discharge Interventions Interventions: ED Discharge Assessment Last Done: 04/04/18 14:38 Status ED Status: Left Department Discharge Information Discharge Date/Time: 04/04/18 14:39
[2018-04-04 12:26] LABS: Chloride 103 meq/L (98-107); Potassium 4.4 meq/L (3.5-5.1); Sodium 142 meq/L (136-145)
[2018-04-04 12:29] LABS: Calcium 8.7 mg/dL (8.5-10.1)
[2018-04-04 12:30] LABS: Albumin 3.7 g/dL (3.4-5.0); Anion Gap 8 meq/L (5-15); Blood Urea Nitrogen 16 mg/dL (7-18); Glucose,Random 156 mg/dL (74-106); Lipase 176 U/L (73-393)
[2018-04-04 12:32] LABS: Alanine Aminotransferase 37 U/L (12-78); Aspartate Aminotransferase 30 U/L (15-37)
[2018-04-04 12:33] LABS: Glomerular Filtration Rate 59 mL/min (>89)
--- NOTE | 2018-04-04 12:33 | XR ---
EXAM DATE: 04/04/2018 12:30 PM EDT AGE/SEX: 72 years / Male INDICATIONS: Chest pain CLINICAL DATA: This is the patient's initial encounter. Patient reports that signs and symptoms have been present for 1 day and indicates a pain score of 4/10. MEDICAL/SURGICAL HISTORY: Hypertension. Myocardial infarction. CAD CABG. COMPARISON: No prior exams available for comparison. FINDINGS: A single AP view of the chest demonstrates the lungs to be symmetrically aerated without evidence of mass, infiltrate or effusion. The cardiomediastinal contours are unremarkable. Median sternotomy wi res are noted status post cardiac surgery. Osseous structures are intact. CONCLUSION: No acute cardiopulmonary disease. Electronically signed by: Magno Carter MD 04/04/2018 12:32 PM EDT
[2018-04-04 12:34] LABS: Total Protein 7.6 g/dL (6.4-8.2)
[2018-04-04 12:35] LABS: Alkaline Phosphatase 63 U/L (45-117); Baso # (Auto) 0.1 th/mm3 (0.0-0.2); Baso % (Auto) 0.7 % (0.0-2.0); Eos # (Auto) 0.2 th/mm3 (0.0-0.4); Eos % (Auto) 2.8 % (0.0-4.0); Hematocrit 46.6 % (39.0-51.0); Hemoglobin 15.7 gm/dL (13.0-17.0); Lymph # (Auto) 1.7 th/mm3 (1.0-4.8); Lymph % (Auto) 22.5 % (9.0-44.0); Mean Corpuscular HGB Conc 33.7 % (32.0-36.0); Mean Corpuscular Hemoglobin 33.3 pg (27.0-34.0); Mean Platelet Volume 9.6 fL (7.0-11.0); Mono # (Auto) 0.5 th/mm3 (0.0-0.9); Mono % (Auto) 6.3 % (0.0-8.0); Neut # (Auto) 5.2 th/mm3 (1.8-7.7); Neut % (Auto) 67.7 % (16.0-70.0); Platelet Count 249 th/mm3 (150-450); Red Blood Count 4.71 mil/mm3 (4.50-5.90); Red Cell Distribution Width 14.4 % (11.6-17.2); White Blood Count 7.8 th/mm3 (4.0-11.0)
[2018-04-04 12:37] LABS: Troponin I 0.04 ng/mL (0.02-0.05)
[2018-04-04 12:56] LABS: Creatine Kinase 100 U/L (39-308)
--- NOTE | 2018-04-04 13:22 | CT ---
EXAM DATE: 04/04/2018 1:16 PM EDT AGE/SEX: 72 years / Male INDICATIONS: Left chest pain radiating to left upper extremity. Difficulty breathing. CLINICAL DATA: This is the patient's initial encounter. Patient reports that signs and symptoms have been present for 2 days and indicates a pain score of 4/10. MEDICAL/SURGICAL HISTORY: Cardiovascular disease. Diabetes mellitus type II. CABG. Coronary arter y stent. RADIATION DOSE: 21.56 CTDI (mGy) ; Patient body habitus COMPARISON: [facility]PO, CHEST 1V SINGLE AP, 04/04/2018. . TECHNIQUE: Volumetric scanning was performed using a multi-row detector CT scanner during bolus infu gene of 85 ml Omnipaque 350 (iohexol) nonionic water-soluble contrast as a single exam dose. The hilda a was post processed with a variety of visualization algorithms including full volume maximum intensi ty projection and sliding thin slab reformation. Using automated exposure control and adjustment of the mA and/or kV according to patient size, radiation dose was kept as low as reasonably achievable t o obtain optimal diagnostic quality images. DICOM format image data is available electronically for review and comparison. FINDINGS: No evidence for pulmonary embolism. Lungs are clear. Degenerative changes of the spine are noted. No adenopathy or aneurysm. Bilateral gynecomastia is noted. Median sternotomy wires are present. CONCLUSION: 1. No evidence for PE. 2. Gynecomastia. Electronically signed by: Eric Martisn MD 04/04/2018 1:20 PM EDT
--- NOTE | 2018-04-04 14:34 | P.HP ---
History of Present Illness Primary Care Physician: Javed Cummings MD Chief Complaint: Chest pain History of Present Illness: 72-year-old male with known history of hypertension, hypovolemia, complicated coronary artery disease status post multiple catheterizations and stenting with re-stenosis of stent. Patient states that the pain started last night between 10 and 1 AM in the morning. Patient indicates that the pain was 6/10 on a pain scale. It was associated with pain on deep inspiration as well as diaphoresis. Denied any nausea, vomiting, headache, lightheadedness, dizziness. Patient states that he tolerated the pain throughout the evening than when he got up this morning he took his 3 nitro tablets without any relief. He took his home medications and then shortly after that he took another 3 nitroglycerin tablets without any relief. Then he proceeded to take another 3 nitroglycerin tablets without any relief. Because he has not gotten any relief of his chest discomfort he came to emergency department for evaluation. Patient was given Nitropaste in the emergency department and morphine without any improvement of his discomfort. Patient states that he still experiencing a 6/10 on a pain scale. Patient has had no relief of symptoms since 10 PM last night despite treatment. Original set of enzymes were negative and comparing EKGs to 2017 there is no significant changes. ER physician recommended that the patient be observed in the hospital for further evaluation and management. - Diagnosis (1) Chest pain (2) Unstable angina Review of Systems All other systems reviewed negative except as stated in HPI Constitutional: Reports excessive sweating Cardiovascular: Reports chest pain PMFSH - History History Provided By: Patient - Medical History Medical History: Medical History (Last Updated 04/04/18 @ 14:31 by JONI Toussaint) Gastroesophageal reflux History of coronary artery disease History of myocardial infarction History of prostate cancer History of pulmonary embolism Hypertension Diabetes 1.5, managed as type 2 High cholesterol - Surgical History Surgical History: Surgical History (Last Updated 04/04/18 @ 14:31 by JONI Toussaint) History of appendectomy History of arthroscopic knee surgery History of cardiac catheterization History of coronary artery stent placement History of prostatectomy History of tonsillectomy - Family History Family History: Family History (Last Updated 04/04/18 @ 14:31 by JONI Toussaint) Father Family history of heart disease - Tobacco History Smoking Status: Former smoker Number of Pack Years (if former smoker): 20 (Quit smoking in 1997) - Alcohol History How Often Do You Have a Drink Containing Alcohol: 4 or more times a week ( Patient drinks approximate 6 drinks daily) - Substance Use History Substance History: No History of Abuse - Travel History Recent Travel in the [place] Within the Last 8 Weeks: No Recent Travel Out of the Country Within the Last 8 Weeks: No - Immunization History Tetanus Immunization: Unsure Hx Influenza Vaccine This Season: Yes Medications and Allergies Active Medications: Active Medications Sodium Chloride (Ns Flush) 2 ml IV.FLUSH UNSCH PRN PRN Reason: FLUSH AFTER USING IV ACCESS Last Admin: 04/04/18 12:24 Dose: 2 ml Allergies Allergy/AdvReac Type Severity Reaction Status Date / Time No Known Allergies Allergy Verified 04/04/18 12:30 Home Medications Medication Instructions Recorded Confirmed Type Co Q-10 1 tab CHEW DAILY 04/04/18 04/04/18 History ascorbic acid (vitamin C) [Vitamin 500 mg PO DAILY 04/04/18 04/04/18 History C] aspirin [Aspir-81] 81 mg PO DAILY 04/04/18 04/04/18 History carvedilol 3.125 mg PO BID 04/04/18 04/04/18 History cholecalciferol (vitamin D3) 2,000 unit PO DAILY 04/04/18 04/04/18 History [Vitamin D3] fluoxetine 20 mg PO DAILY 04/04/18 04/04/18 History furosemide 80 mg PO DAILY 04/04/18 04/04/18 History gabapentin 300 mg PO DAILY 04/04/18 04/04/18 History glipizide 5 mg PO DAILY 04/04/18 04/04/18 History glucosamine HCl 1,500 mg PO DAILY 04/04/18 04/04/18 History isosorbide mononitrate 30 mg PO DAILY 04/04/18 04/04/18 History lactobacillus combination no.4 3,000 mmu cells PO DAILY 04/04/18 04/04/18 History [Probiotic] metformin 1,000 mg PO BID 04/04/18 04/04/18 History multivitamin 1 tab PO DAILY 04/04/18 04/04/18 History niacin 500 mg PO DAILY 04/04/18 04/04/18 History omeprazole 20 mg PO DAILY 04/04/18 04/04/18 History rosuvastatin 20 mg PO DAILY 04/04/18 04/04/18 History vitamin E 400 unit PO DAILY 04/04/18 04/04/18 History Exam Vital signs: Vital Signs 04/04/18 12:06 04/04/18 12:12 04/04/18 12:51 Temperature 98.0 F Pulse Rate 94 H 88 Respiratory Rate 20 18 Blood Pressure 156/87 H 159/87 H Pulse Oximetry 92 L 96 96 04/04/18 13:56 Temperature Pulse Rate 82 Respiratory Rate 18 Blood Pressure 155/70 H Pulse Oximetry 96 Intake & Output 04/03/18 04/04/18 04/04/18 18:59 06:59 18:59 Weight 125.8 kg Narrative: GENERAL: Well-developed, obese with BMI 42, in no acute distress. alert and orientated HEENT: Head is normocephalic without any lesions or masses noted. Facial features are symmetric. Eyes: Pupils equal round reactive to light. Extraocular muscles are intact. Conjunctivae were clear. Oropharyngeal: Pharynx without any erythema edema. Tongue is midline without deviation. Buccal mucosa is moist without any masses or lesions NECK: Supple without any masses. Trachea midline no deviation. No JVD, no bruits are appreciated CARDIAC: Regular rhythm, regular rate. S1/S2 are heard. No murmurs gallops or rubs. LUNGS: Clear to auscultation bilaterally. No wheeze, rhonchi or rales. No use of accessory muscles on inspiration or expiration. ABDOMEN: Soft, nontender. Nondistended. Bowel sounds heard in all 4 quadrants. No organomegaly or masses. Negative rebound, negative guarding EXTREMITIES: No edema, pulses are equal bilaterally. No cyanosis or clubbing NEUROLOGY: Mood and affect appear appropriate. Cranial nerves II through XII grossly intact. Muscle strength 5/5 in upper and lower extremities bilaterally. Deep tendon reflexes are 2+ in upper and lower extremities bilaterally. Results - Labs CBC & Chem 7: 04/04/18 12:05 04/04/18 12:05 Labs: Laboratory Results - last 24 hr 04/04/18 04/04/18 04/04/18 12:05 12:05 12:05 CBC w Diff Auto diff final WBC 7.8 RBC 4.71 Hgb 15.7 Hct 46.6 MCV 99.0 MCH 33.3 MCHC 33.7 RDW 14.4 Plt Count 249 MPV 9.6 Neut % (Auto) 67.7 Lymph % (Auto) 22.5 [place] % (Auto) 6.3 Eos % (Auto) 2.8 Baso % (Auto) 0.7 Neut # (Auto) 5.2 Lymph # (Auto) 1.7 [place] # (Auto) 0.5 Eos # (Auto) 0.2 Baso # (Auto) 0.1 WBC Differential . Differential Comment . Sodium 142 Potassium 4.4 Chloride 103 Carbon Dioxide 31.0 Anion Gap 8 BUN 16 Creatinine 1.20 Estimated GFR 59 L Random Glucose 156 H Calcium 8.7 Total Bilirubin 0.4 AST 30 ALT 37 Alkaline Phosphatase 63 Total Creatine Kinase 100 Troponin I 0.04 B-Natriuretic Peptide 119 H Total Protein 7.6 Albumin 3.7 Lipase 176 - Imaging Impressions Chest CTA 04/04/18 12:04 CONCLUSION: 1. No evidence for PE. 2. Gynecomastia. Chest X-Ray 04/04/18 12:04 CONCLUSION: No acute cardiopulmonary disease. Caprini VTE Risk Assessment Caprini VTE Risk Assessment: Moderate/High Risk (score >= 2) Caprini Risk Assessment Model: Point Value = 1 Point Value = 2 Point Value = 3 Point Value = 5 Age 41-60 Minor surgery BMI > 25 kg/m2 Swollen legs Varicose veins or History of unexplained or recurrent spontaneous Oral contraceptives or hormone replacement Sepsis (< 1 month) Serious lung disease, including pneumonia (< 1 month) Abnormal pulmonary function Acute myocardial infarction Congestive heart failure (< 1 month) History of inflammatory bowel disease Medical patient at bed rest Age 61-74 Arthroscopic surgery Major open surgery (> 45 min) Laparoscopic surgery (> 45 min) Malignancy Confined to bed (> 72 hours) Immobilizing plaster cast Central venous access Age >= 75 History of VTE Family history of VTE Factor V Leiden Prothrombin [id number] Lupus anticoagulant Anticardiolipin antibodies Elevated serum homocysteine Heparin-induced thrombocytopenia Other congenital or acquired thrombophilia Stroke (< 1 month) Elective arthroplasty Hip, pelvis, or leg fracture Acute spinal cord injury (< 1 month) Prophylaxis Regimen: Total Risk Factor Score Risk Level Prophylaxis Regimen 0-1 Low Early ambulation 2 Moderate Order ONE of the following: *Sequential Compression Device (SCD) *Heparin 5000 units SQ BID 3-4 Higher Order ONE of the following medications: *Heparin 5000 units SQ TID *Enoxaparin/Lovenox 40 mg SQ daily (WT < 150 kg, CrCl > 30 mL/min) *Enoxaparin/Lovenox 30 mg SQ daily (WT < 150 kg, CrCl > 10-29 mL/min) *Enoxaparin/Lovenox 30 mg SQ BID (WT < 150 kg, CrCl > 30 mL/min) AND/OR *Sequential Compression Device (SCD) 5 or more Highest Order ONE of the following medications: *Heparin 5000 units SQ TID (Preferred with Epidurals) *Enoxaparin/Lovenox 40 mg SQ daily (WT < 150 kg, CrCl > 30 mL/min) *Enoxaparin/Lovenox 30 mg SQ daily (WT < 150 kg, CrCl > 10-29 mL/min) *Enoxaparin/Lovenox 30 mg SQ BID (WT < 150 kg, CrCl > 30 mL/min) AND *Sequential Compression Device (SCD) Assessment and Plan - Assessment (1) Chest pain Code(s): R07.9 - Chest pain, unspecified Status: Acute (2) Unstable angina Code(s): I20.0 - Unstable angina Status: Acute - Plan Chest pain, unstable angina -Patient with significant risk factors for acute coronary event to include hypertension, hypovolemia, diabetes, coronary disease, patient with history of restenosis of stents, patient still with significant pain without any relief. -Status post Nitropaste and morphine without pain control -Original cardiac enzyme is unremarkable -Original EKG is reviewed by myself and compared to 2017 which does not show any changes -Discussed with Dr. 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, who indicated that if we are unable to get the patient pain-free then patient will need to have immediate consultation with her group for intervention -Continue aspirin, Nitropaste, morphine for pain control -Continue home medications Coreg,Imdur, statin Hypertension, hyperlipidemia, coronary disease, history of pulmonary emboli -Vital signs are stable, -Continue home medications -Obtain lipid panel -Pulmonary angiogram was performed which did not indicate any pulmonary emboli or pleuritic etiology for his chest pain Diabetes -Accu-Cheks with sliding scale insulin DVT prevention -Subcutaneous Lovenox Discussed Condition With: Patient, at bedside, ER physician, Dr. Dozier
[2018-04-04] MEDS ORDERED: Morphine Inj 4 MG/ML Vial IV.PUSH PRN (14:45)
[2018-04-04] MEDS ORDERED: Acetaminophen 500 MG Tablet PO PRN (14:45)
[2018-04-04] MEDS ORDERED: Dextrose 50% in Water 50 ML Vial IV.PUSH PRN (15:00)
[2018-04-04 15:31] LABS: Activated Partial Thrombo Time 23.3 sec (24.3-30.1); Prothrombin Time 10.6 sec (9.8-11.6)
[2018-04-04 15:37] LABS: Troponin I 0.04 ng/mL (0.02-0.05)
[2018-04-04] MEDS ORDERED: Enoxaparin Inj 40 MG/0.4 ML Syringe SQ SCH (16:00)
[2018-04-04] MEDS: Insulin NovoLOG Aspart Correctional Sugar Inj SQ SCH ×2 (17:44→21:38)
[2018-04-04 18:42] LABS: Troponin I 0.04 ng/mL (0.02-0.05)
[2018-04-05] MEDS ORDERED: Isosorbide Mononitrate 30 MG ER 24HR Tablet (Imdur) PO SCH (07:00)
[2018-04-05 07:28] VITALS: RESP 20; O2SAT 95
[2018-04-05] MEDS: Insulin NovoLOG Aspart Correctional Sugar Inj SQ SCH ×2 (08:13→12:11)
[2018-04-05] MEDS ORDERED: Regadenoson Inj 0.4 MG/5 ML Syringe IV.PUSH ONE (08:48)
[2018-04-05] MEDS ORDERED: FLUoxetine 20 MG Capsule PO SCH (09:00)
[2018-04-05] MEDS ORDERED: Aspirin 325 MG Tablet PO SCH (09:00)
[2018-04-05] MEDS ORDERED: Gabapentin 300 MG Capsule PO SCH (09:00)
--- NOTE | 2018-04-05 10:21 | NM ---
EXAM DATE: 04/05/2018 10:14 AM EDT AGE/SEX: 72 years / Male INDICATIONS:Angina. Myocardial infarction Left chest pain radiating to left arm. CLINICAL DATA: This is the patient's initial encounter. Patient reports that signs and symptoms have been present for 1 day and indicates a pain score of 4/10. MEDICAL/SURGICAL HISTORY: Carcinoma, prostatic. Hypertension. Appendectomy. Prostatectomy. C oronary artery stent. COMPARISON: No prior exams available for comparison. DOSE: 11 mCi Tc 99m Myoview at rest 35 mCi [id number] at stress 0.4 mg Lexiscan STRESS SYMPTOMS: Throat tightness and dizziness. EJECTION FRACTION: 39 % TECHNIQUE: The patient underwent pharmacologic stress with infusion of prescribed dose. Continuous ECG tracing was monitored during stress. Gated SPECT imaging was performed after stress and conventi onal SPECT imaging was performed at rest. The examination was performed on a SPECT/CT scanner, both attenuation and non-corrected datasets were reviewed. FINDINGS: Distribution: The maximum perfused segment at stress is in the lateral wall. Perfusion Study: There is a small fixed defect at the anterior wall, and septal wall and large fixe d defect inferior wall. No definite reversible perfusion defects are identified to suggest stress-ind uced myocardial ischemia. Gated Study: Ejection fraction of 39% with global hypokinesis greatest at the anterior septal region . The ejection fraction is calculated at 39%. RISK CATEGORY: High (>3% Annual Morality Rate) CONCLUSION: 1. Hypokinesis with EF of 39%, and fixed perfusion defects noted. 2. No definite reversible perfusion defects identified at this time. Electronically signed by: Eric Martins MD 04/05/2018 10:20 AM EDT
--- NOTE | 2018-04-05 10:39 | P.PN ---
Subjective Interval history: 72-year-old male who is seen in follow-up today for chest discomfort. Patient has been asymptomatic since being in the hospital. He is doing well. Denies any new complaints. Vital signs are stable. Patient remains afebrile. Physical Exam Vital signs: Vital Signs 04/04/18 12:06 04/04/18 12:12 04/04/18 12:51 Temperature 98.0 F Pulse Rate 94 H 88 Respiratory Rate 20 18 Blood Pressure 156/87 H 159/87 H Pulse Oximetry 92 L 96 96 04/04/18 13:56 04/04/18 16:00 04/04/18 20:00 Temperature 97.8 F 97.4 F L Pulse Rate 82 75 74 Respiratory Rate 18 19 20 Blood Pressure 155/70 H 146/87 H 121/66 Pulse Oximetry 96 96 96 04/05/18 00:00 04/05/18 04:00 04/05/18 07:27 Temperature 97 F L 96.5 F L 96.8 F L Pulse Rate 66 69 67 Respiratory Rate 20 18 20 Blood Pressure 135/70 154/93 H 136/68 Pulse Oximetry 97 97 95 04/05/18 07:48 04/05/18 08:00 Temperature Pulse Rate Respiratory Rate Blood Pressure Pulse Oximetry 95 95 Intake & Output 04/04/18 04/05/18 04/05/18 18:59 06:59 18:59 Intake Total 480 / 480 0 / 0 Output Total 550 / 550 Balance 480 / 480 -550 / -550 Weight 125.4 kg 125.6 kg Intake: Oral 480 / 480 0 / 0 Output: Urine 550 / 550 Other: # Voids 2 Date of Last Bowel Movement 04/04/18 04/04/18 # Bowel Movements 0 Narrative: GENERAL: Well-developed, well-nourished, in no acute distress. alert and orientated HEENT: Head is normocephalic without any lesions or masses noted. Facial features are symmetric. Eyes: Extraocular muscles are intact. Conjunctivae were clear. NECK: Supple without any masses. Trachea midline no deviation. No JVD, CARDIAC: Regular rhythm, regular rate. S1/S2 are heard. No murmurs gallops or rubs. LUNGS: Clear to auscultation bilaterally. No wheeze, rhonchi or rales. No use of accessory muscles on inspiration or expiration. ABDOMEN: Soft, nontender. Nondistended. Bowel sounds heard in all 4 quadrants. No organomegaly or masses. Negative rebound, negative guarding EXTREMITIES: No edema, pulses are equal bilaterally. No cyanosis or clubbing NEUROLOGY: Mood and affect appear appropriate. Cranial nerves II through XII grossly intact. Moving all extremities, speech is clear Results - Labs CBC & Chem 7: 04/04/18 12:05 04/04/18 12:05 Laboratory Results - last 24 hr 04/04/18 04/04/18 04/04/18 12:05 12:05 12:05 CBC w Diff Auto diff final WBC 7.8 RBC 4.71 Hgb 15.7 Hct 46.6 MCV 99.0 MCH 33.3 MCHC 33.7 RDW 14.4 Plt Count 249 MPV 9.6 Neut % (Auto) 67.7 Lymph % (Auto) 22.5 [place] % (Auto) 6.3 Eos % (Auto) 2.8 Baso % (Auto) 0.7 Neut # (Auto) 5.2 Lymph # (Auto) 1.7 [place] # (Auto) 0.5 Eos # (Auto) 0.2 Baso # (Auto) 0.1 WBC Differential . Differential Comment . PT INR APTT Sodium 142 Potassium 4.4 Chloride 103 Carbon Dioxide 31.0 Anion Gap 8 BUN 16 Creatinine 1.20 Estimated GFR 59 L POC Glucose Random Glucose 156 H Calcium 8.7 Total Bilirubin 0.4 AST 30 ALT 37 Alkaline Phosphatase 63 Total Creatine Kinase 100 Troponin I 0.04 B-Natriuretic Peptide 119 H Total Protein 7.6 Albumin 3.7 Lipase 176 04/04/18 04/04/18 04/04/18 15:05 15:05 16:28 CBC w Diff WBC RBC Hgb Hct MCV MCH MCHC RDW Plt Count MPV Neut % (Auto) Lymph % (Auto) [place] % (Auto) Eos % (Auto) Baso % (Auto) Neut # (Auto) Lymph # (Auto) [place] # (Auto) Eos # (Auto) Baso # (Auto) WBC Differential Differential Comment PT 10.6 INR 1.0 APTT 23.3 L Sodium Potassium Chloride Carbon Dioxide Anion Gap BUN Creatinine Estimated GFR POC Glucose 113 H Random Glucose Calcium Total Bilirubin AST ALT Alkaline Phosphatase Total Creatine Kinase 82 Troponin I 0.04 B-Natriuretic Peptide Total Protein Albumin Lipase 04/04/18 04/04/1818 18:05 21:37 07:52 CBC w Diff WBC RBC Hgb Hct MCV MCH MCHC RDW Plt Count MPV Neut % (Auto) Lymph % (Auto) [place] % (Auto) Eos % (Auto) Baso % (Auto) Neut # (Auto) Lymph # (Auto) [place] # (Auto) Eos # (Auto) Baso # (Auto) WBC Differential Differential Comment PT INR APTT Sodium Potassium Chloride Carbon Dioxide Anion Gap BUN Creatinine Estimated GFR POC Glucose 142 H 180 H Random Glucose Calcium Total Bilirubin AST ALT Alkaline Phosphatase Total Creatine Kinase 75 Troponin I 0.04 B-Natriuretic Peptide Total Protein Albumin Lipase - Imaging Impressions Chest CTA 04/04/18 12:04 CONCLUSION: 1. No evidence for PE. 2. Gynecomastia. Chest X-Ray 04/04/18 12:04 CONCLUSION: No acute cardiopulmonary disease. Myocardial Perfusion Scan Nuc Med 04/05/18 06:00 CONCLUSION: 1. Hypokinesis with EF of 39%, and fixed perfusion defects noted. 2. No definite reversible perfusion defects identified at this time. Assessment and Plan - Assessment (1) Chest pain Code(s): R07.9 - Chest pain, unspecified Status: Acute (2) Unstable angina Code(s): I20.0 - Unstable angina Status: Acute - Plan Chest pain, unstable angina -Patient with significant risk factors for acute coronary event to include hypertension, hypovolemia, diabetes, coronary disease, patient with history of restenosis of stents -Patient was ruled out for any acute coronary event with serial cardiac enzymes that are negative -Serial EKGs reviewed by myself did not indicate any acute abnormality. -Patient was able to become asymptomatic after the use of morphine and Nitropaste -Myocardial perfusion study was performed which showed akinesis with ejection fraction 39% with fixed defect, no reperfusion defects were identified -Patient most recent echocardiogram in his records was performed August 21, 2016 showed systolic function moderately reduced with ejection fraction 35-40% with diffuse hypokinesis. Which does correlate with ejection fraction and findings seen on myocardial perfusion study -Continue aspirin, Nitropaste, morphine for pain control -Continue home medications Coreg,Imdur, statin -Patient to follow up with Dr. Dozier in the next 2 weeks Hypertension, hyperlipidemia, coronary disease, history of pulmonary emboli -Vital signs are stable, -Continue home medications -Awaiting lipid panel -Pulmonary angiogram was performed which did not indicate any pulmonary emboli or pleuritic etiology for his chest pain Diabetes -Accu-Cheks with sliding scale insulin DVT prevention -Subcutaneous Lovenox Discharge Planning: Discharge home in stable condition Activity: Ad gary. Diet: Healthy heart diet Medication per medication reconciliation Follow-up with primary medical doctor in 1 week
[2018-04-05] MEDS ORDERED: amLODIPine 5 MG Tablet PO SCH (10:45)
[2018-04-05 11:13] VITALS: BP 132/70; PULSE 70; TEMP 96.9
--- NOTE | 2018-04-05 11:23 | TR ---
Date Performed: 04/05/2018 Time Performed: 09:17:52 DOCTOR: Efrem High DRUG LIST: CLINICAL HISTORY: REASON FOR TEST: Chest pain REASON FOR ENDING: OBSERVATION: CONCLUSION: COMMENTS: Lexiscan stress test was performed under standard four minute protocol. Radionuclide was injected one minute prior to ending the test. No electrocardiographic abormalities were present t o suggest ischemia. Nuclear imaging and interpretation are pending.
--- NOTE | 2018-04-05 16:55 | ECG ---
Date Performed: 04/04/2018 Time Performed: 15:03:29 PTAGE: 72 years EKG: Sinus rhythm LOW QRS VOLTAGE IN PRECORDIAL LEADS POSSIBLE ANTERIOR MYOCARDIAL INFARCTION PROBABLE INFERIOR MYOCAR DIAL INFARCTION ABNORMAL ECG Compared to PREVIOUS TRACING , PVCs no longer present, otherwise no signficant change. PREVIOUS ELIZABETH N04/04/2018 11.59 DOCTOR: Efrem High Interpretating Date/Time 04/05/2018 16:54:54
--- NOTE | 2018-04-05 16:55 | ECG ---
Date Performed: 04/04/2018 Time Performed: 11:59:23 PTAGE: 72 years EKG: Sinus rhythm WITH OCCASIONAL VENTRICULAR PREMATURE COMPLEXES INDETERMINATE AXIS LOW QRS VOLTAGE IN PRECORDIAL SOM DS POSSIBLE ANTERIOR MYOCARDIAL INFARCTION PROBABLE INFERIOR MYOCARDIAL INFARCTION ABNORMAL ECG Urban red to PREVIOUS TRACING , the previous tracing showed ST elevation in V3-V6 with loss of R force s in those leads. This is compatible with an acute or evolving anterior myocardial infarction. This t racing shows residual changes of the [place]. PREVIOUS TRACIN08/21/2016 17.54.50 DOCTOR: Efrem High Interpretating Date/Time 04/05/2018 16:54:23
--- NOTE | 2018-04-05 16:55 | ECG ---
Date Performed: 04/04/2018 Time Performed: 18:03:09 PTAGE: 72 years EKG: Sinus rhythm LOW QRS VOLTAGE IN PRECORDIAL LEADS POSSIBLE ANTERIOR MYOCARDIAL INFARCTION INFERIOR WALL MYOCARDIAL INFARCTION OF UNDETERMINED AGE Since previous tracing, no significant change noted BORDERLINE ECG PREVIOUS TRACING : 04/04/2018 15.03 DOCTOR: Efrem High Interpretating Date/Time 04/05/2018 16:55:30
== END 2018-04-05 12:16 | disposition home or self-care (01) ==
LOC: PHED 11:49 → PHEDA 11:49 → PH3 14:29
PROVIDERS: ADMIT Hospitalist; ATTEND Hospitalist